=== PATIENT | female | born 1965 | race Caucasian/White ===

== ENCOUNTER 2018-05-26 13:10 | Observation (INO) | payer BC ==
--- NOTE | 2018-05-26 22:00 | CT ---
EXAMINATION TYPE: CT angiography chest, abdomen, and pelvis DATE OF EXAM: 05/26/2018 COMPARISON: None HISTORY: 52-year-old female with left-sided chest pain and severe headache. TECHNIQUE: Contiguous axial scanning of the chest, abdomen, and pelvis before and after the administr ation of 100 mL of Isovue 370. Coronal/sagittal MIP reconstructions performed. 3-D reconstructions g enerated on a dedicated independent workstation. CT DLP: 1872.6mGycm. Automatic exposure control utilized for a dose reduction. FINDINGS: CHEST: Heart upper limits of normal in size without pericardial effusion. No flattening of the interventricu lar septum or reflux of contrast into the hepatic veins. Prominent but not enlarged 7 mm prevascular space lymph node. No thoracic lymphadenopathy by CT size criteria. Evaluation of the lungs shows 4 mm anterior right midlung pulmonary nodule axial image 38. No consoli dation or pleural effusion. VASCULATURE: Initial noncontrast sequence shows no evidence for acute intramural hematoma. Ascending aorta mildly ectatic at 3.7 cm. Proximal arch ectatic at 3.6 cm. Variant direct takeoff of the left vertebral artery directly from the aortic arch. Upper descending thoracic aorta normal caliber at 2.4 cm. No evidence for aortic dissection. Abdominal aorta is normal caliber with patent visceral arteries. 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 ABDOMEN: Liver enlarged at 22 cm with low attenuation. Arterial phase imaging with mixing artifact in the port al venous system limiting its assessment. No biliary ductal dilatation. Gallbladder, adrenal glands, right kidney, spleen, and pancreas appear within normal limits. 2.0 cm p robable cyst exophytic lateral lower pole left kidney. No dilated small bowel, free fluid, or free air. Tiny fatty umbilical hernia. No mesenteric or retrop eritoneal lymphadenopathy. Normal appendix. Scattered mild stool burden without pericolonic inflammatory change. PELVIS: Bladder is urine distended. Uterus surgically absent. Left ovary is visualized. Right ovary not clear ly seen. No abnormal fluid collection in the pelvis or pelvic lymphadenopathy seen. BONES: Degenerative changes of the hips. Facet arthropathy mid to lower lumbar spine. Degenerative disc dise ase mid thoracic spine. No osseous destructive process. IMPRESSION: 1. Ectatic ascending aorta measuring up to 3.7 cm. No evidence for aortic aneurysm, acute intramural hematoma, or aortic dissection. 2. A 4 mm right midlung pulmonary nodule can be reassessed at a one-year follow-up. 3. Hepatomegaly and hepatic steatosis (liver measures 22 cm).
--- NOTE | 2018-05-26 22:00 | XR ---
EXAMINATION TYPE: PA and lateral views of the chest DATE OF EXAM: 05/26/2018 COMPARISON: 10/22/2014 HISTORY: 52-year-old female with chest pain FINDINGS: Heart normal size. Aorta within normal limits. Strandy atelectasis mid and lower lungs. No consolidat ion or pleural effusion. IMPRESSION: No acute cardiopulmonary process.
--- NOTE | 2018-05-26 22:00 | CT ---
EXAMINATION TYPE: CT head without contrast DATE OF EXAM: 05/26/2018 COMPARISON: None HISTORY: 52-year-old female left-sided chest pain, headache and head pressure TECHNIQUE: Examination was done in axial plane without intravenous contrast. Coronal and sagittal r econstructions performed. CT DLP: 1103.4 mGycm Automated exposure control for dose reduction was used. FINDINGS: There is no evidence of acute intracranial hemorrhage, acute ischemic changes, mass, mass-effect, or extra-axial fluid collection. There is no effacement of cerebral sulci or basal subarachnoid cister ns. There is no hydrocephalus. There is no midline shift. Caraballo-white matter distinction is preserv ed. Paranasal sinuses and mastoid air cells are well pneumatized. Orbits and globes are intact. IMPRESSION: No acute intracranial abnormality seen.
[2018-05-26] MEDS ORDERED: ACETAMINOPHEN TAB 325 MG TAB PO PRN (23:14)
[2018-05-26] MEDS ORDERED: IBUPROFEN 400 MG TAB PO PRN (23:15)
[2018-05-26 23:43] VITALS: RESP 18
[2018-05-26 23:55] VITALS: BMI 50.3
[2018-05-27 01:02] LABS: INR 0.9 (<1.2); Partial Thromboplastin Time 24.6 sec (22.0-30.0); Prothrombin Time 9.6 sec (9.0-12.0)
[2018-05-27 02:21] LABS: Creatine Kinase 60 U/L (30-135)
[2018-05-27 02:34] LABS: Creatine Kinase MB 0.5 ng/mL (0.0-2.4); Troponin I <0.012 ng/mL (0.000-0.034)
[2018-05-27 02:40] LABS: ALT 40 U/L (9-52); AST 25 U/L (14-36); Albumin 4.3 g/dL (3.5-5.0); Alkaline Phosphatase 73 U/L (38-126); Anion Gap 11 mmol/L; Blood Urea Nitrogen 12 mg/dL (7-17); Calcium 9.3 mg/dL (8.4-10.2); Carbon Dioxide 26 mmol/L (22-30); Chloride 103 mmol/L (98-107); Glucose 120 mg/dL (74-99); Magnesium 1.7 mg/dL (1.6-2.3); Sodium 140 mmol/L (137-145); Total Bilirubin 0.3 mg/dL (0.2-1.3)
[2018-05-27 02:46] LABS: Creatine Kinase 81 U/L (30-135); Creatine Kinase MB 0.8 ng/mL (0.0-2.4); Troponin I <0.012 ng/mL (0.000-0.034)
[2018-05-27 06:02] LABS: Basophils % (A) 1 %; Eosinophils # (A) 0.2 k/uL (0-0.7); Eosinophils % (A) 3 %; HCT 37.9 % (34.0-46.0); HGB 12.7 gm/dL (11.4-16.0); Lymphocytes # (A) 1.6 k/uL (1.0-4.8); Lymphocytes % (A) 23 %; MCHC 33.4 g/dL (31.0-37.0); MCV 89.9 fL (80.0-100.0); Mean Platelet Volume 7.7; Monocytes # (A) 0.3 k/uL (0-1.0); Monocytes % (A) 5 %; Neutrophils # (A) 4.7 k/uL (1.3-7.7); Neutrophils % (A) 67 %; Platelet Count 291 k/uL (150-450); RBC 4.22 m/uL (3.80-5.40); RDW 13.4 % (11.5-15.5); WBC 7.1 k/uL (3.8-10.6)
[2018-05-27 06:38] LABS: Glucose,Whole Blood 132 mg/dL (75-99)
[2018-05-27 07:43] LABS: Basophils # (A) 0.1 k/uL (0-0.2); Basophils % (A) 1 %; Eosinophils # (A) 0.3 k/uL (0-0.7); Eosinophils % (A) 3 %; HCT 36.6 % (34.0-46.0); HGB 11.8 gm/dL (11.4-16.0); Lymphocytes # (A) 1.8 k/uL (1.0-4.8); Lymphocytes % (A) 22 %; MCH 28.8 pg (25.0-35.0); MCHC 32.3 g/dL (31.0-37.0); MCV 89.1 fL (80.0-100.0); Mean Platelet Volume 6.6; Monocytes # (A) 0.4 k/uL (0-1.0); Monocytes % (A) 5 %; Neutrophils # (A) 5.4 k/uL (1.3-7.7); Neutrophils % (A) 66 %; Platelet Count 275 k/uL (150-450); RBC 4.11 m/uL (3.80-5.40); RDW 13.3 % (11.5-15.5); WBC 8.1 k/uL (3.8-10.6)
[2018-05-27 08:20] LABS: Creatine Kinase 54 U/L (30-135)
[2018-05-27 08:32] LABS: Creatine Kinase MB 0.4 ng/mL (0.0-2.4); Troponin I <0.012 ng/mL (0.000-0.034)
[2018-05-27 08:35] LABS: Anion Gap 7 mmol/L; Blood Urea Nitrogen 16 mg/dL (7-17); Calcium 9.3 mg/dL (8.4-10.2); Carbon Dioxide 29 mmol/L (22-30); Chloride 103 mmol/L (98-107); Glucose 141 mg/dL (74-99); Potassium 4.3 mmol/L (3.5-5.1); Sodium 139 mmol/L (137-145)
--- NOTE | 2018-05-27 08:55 | P.CRDCN ---
History of Present Illness Consult date: 05/27/18 Chief complaint: Chest pain History of present illness: This is a pleasant 52-year-old female patient with a past medical history significant for diabetes, hypertension, and dyslipidemia, who presented to the hospital complaining of chest discomfort. The patient was in her usual state of health and she was sitting in the car with her when she started experiencing discomfort in the chest, as a sharp kind of discomfort, located over the left side of the chest. She felt weak for a few minutes. Also she felt nauseated but she did not vomit. Overall she did not feel well and because of that she decided to come to the emergency room. The patient underwent a computed tomography scan of the head which did not show any acute abnormalities. The computed tomography scan of the chest also did not show any acute abnormalities. The EKG showed sinus rhythm with a Q wave in the inferior leads indicating possible old inferior [place]. The EKG itself did not show any acute or ischemic changes. The cardiac enzymes were checked and came in to be unremarkable. On follow-up with her today, she has been chest pain-free since she was admitted to the hospital. The past medical history is as described above. The patient does not smoke or drink alcohol. She does have a significant family history of coronary artery disease with her father. Past Medical History Past Medical History: Diabetes Mellitus, GERD/Reflux, Hyperlipidemia, Hypertension, Pulmonary Embolus (PE), Thyroid Disorder Additional Past Medical History / Comment(s): depression, right hamstring tear History of Any Multi-Drug Resistant Organisms: MRSA Date of last positivie culture/infection: 2010 MDRO Source:: lower extremities Past Surgical History: Hysterectomy, Orthopedic Surgery Additional Past Surgical History / Comment(s): right ankle Past Anesthesia/Blood Transfusion Reactions: No Reported Reaction Past Psychological History: Depression Smoking Status: Former smoker Past Alcohol Use History: None Reported Past Drug Use History: None Reported - Past Family History Father Family Medical History: Coronary Artery Disease (CAD), Diabetes Mellitus Mother Family Medical History: Diabetes Mellitus Medications and Allergies Home Medications Medication Instructions Recorded Confirmed Type Atorvastatin [Lipitor] 20 mg PO HS 10/22/14 05/27/18 History Hydrochlorothiazide 25 mg PO DAILY 10/22/14 05/27/18 History Metoprolol Succinate [Toprol XL] 100 mg PO DAILY 10/22/14 05/27/18 History Omeprazole [PriLOSEC] 20 mg PO AC-BRKFST 10/22/14 05/27/18 History Lisinopril 30 mg PO DAILY 05/27/18 05/27/18 History Meloxicam [Mobic] 15 mg PO DAILY 05/27/18 05/27/18 History Methimazole [Tapazole] 5 mg PO DAILY 05/27/18 05/27/18 History Venlafaxine HCl [Effexor] 75 mg PO BID 05/27/18 05/27/18 History metFORMIN HCL [Glucophage] 2 tab PO BID 05/27/18 05/27/18 History Allergies Allergy/AdvReac Type Severity Reaction Status Date / Time shellfish derived [Shellfish] AdvReac ITCHY Verified 10/22/14 09:24 MOUTH & VOMITING Physical Exam Vitals: Vital Signs Temp Pulse Resp BP Pulse Ox 05/27/18 07:10 97.6 F 88 18 143/70 98 05/27/18 04:26 98.1 F 91 18 112/74 99 05/27/18 03:31 18 05/27/18 00:00 18 05/26/18 23:42 97.8 F 69 18 169/89 97 Intake and Output 05/26/18 05/27/18 05/27/18 22:59 06:59 14:59 Other: Voiding Method Toilet # Voids 2 Weight 124.738 kg - Constitutional General appearance: no acute distress - Respiratory Respiratory: bilateral: CTA - Cardiovascular Rhythm: regular Heart sounds: normal: S1, S2 Results 05/27/18 07:12 05/27/18 07:12 Cardiac Enzymes 05/26/18 05/26/18 05/27/18 Range/Units 13:20 13:20 01:26 AST 25 (14-36) U/L CK-MB (CK-2) 0.8 0.5 (0.0-2.4) ng/mL Troponin I <0.012 <0.012 (0.000-0.034) ng/mL 05/27/18 Range/Units 07:12 AST (14-36) U/L CK-MB (CK-2) 0.4 (0.0-2.4) ng/mL Troponin I <0.012 (0.000-0.034) ng/mL Coagulation 05/26/18 Range/Units 13:20 PT 9.6 (9.0-12.0) sec APTT 24.6 (22.0-30.0) sec CBC 05/26/18 05/27/18 Range/Units 13:20 07:12 WBC 7.1 8.1 (3.8-10.6) k/uL RBC 4.22 4.11 (3.80-5.40) m/uL Hgb 12.7 11.8 (11.4-16.0) gm/dL Hct 37.9 36.6 (34.0-46.0) % Plt Count 291 275 (150-450) k/uL Comprehensive Metabolic Panel 05/26/18 05/27/18 Range/Units 13:20 07:12 Sodium 140 139 (137-145) mmol/L Potassium 4.0 4.3 (3.5-5.1) mmol/L Chloride 103 103 (98-107) mmol/L Carbon Dioxide 26 29 (22-30) mmol/L BUN 12 16 (7-17) mg/dL Creatinine 0.66 0.79 (0.52-1.04) mg/dL Glucose 120 H 141 H (74-99) mg/dL Calcium 9.3 9.3 (8.4-10.2) mg/dL AST 25 (14-36) U/L ALT 40 (9-52) U/L Alkaline Phosphatase 73 (38-126) U/L Total Protein 7.0 (6.3-8.2) g/dL Albumin 4.3 (3.5-5.0) g/dL Current Medications Generic Name Dose Route Start Last Admin Trade Name Freq PRN Reason Stop Dose Admin Acetaminophen 650 mg 05/26/18 23:14 Tylenol Tab PO Q6HR PRN Fever and/ or Pain Ibuprofen 400 mg 05/26/18 23:15 Motrin PO Q6HR PRN Pain Intake and Output 05/26/18 05/27/18 05/27/18 22:59 06:59 14:59 Other: Voiding Method Toilet # Voids 2 Weight 124.738 kg 05/27/18 07:12 05/27/18 07:12 Assessment and Plan Assessment: Assessment #1 atypical chest discomfort. The patient has been chest pain-free #2 multiple risk factors for CAD including diabetes, hypertension, and dyslipidemia #3 significant family history of coronary artery disease Plan #1 the patient was ruled out for acute coronary event #2 severe coronary artery disease to be ruled out. I did recommend proceeding with a stress test. The patient would like to have the stress test done as an outpatient #3 I am going to get the patient up and around and if she is chest pain-free she possibly can be discharged home. Thank you for allowing us participate in her care.
[2018-05-27 11:57] LABS: Glucose,Whole Blood 126 mg/dL (75-99)
[2018-05-27 12:06] VITALS: BP 153/86; PULSE 72; TEMP 98.6
[2018-05-27] MEDS ORDERED: PANTOPRAZOLE 40 MG TABLET PO SCH (14:45)
[2018-05-27] MEDS ORDERED: LISINOPRIL 10 MG TAB PO SCH (14:45)
[2018-05-27] MEDS ORDERED: METHIMAZOLE 5 MG TAB PO SCH (14:45)
[2018-05-27] MEDS ORDERED: HYDROCHLOROTHIAZIDE 25 MG TAB PO SCH (14:45)
--- NOTE | 2018-05-27 15:02 | P.HPIM ---
History of Present Illness H&P Date: 05/27/18 Chief Complaint: Chest pain Patient is a 52-year-old female with a past medical history of hypertension, hyperlipidemia and diabetes type 2 [id number] and as well as osteoarthritis came to ER with complaints of chest pain. Patient was traveling with her in the car, she suddenly developed chest pain with headache and tingling and numbness over the head. After sometime patient did have chest pain again with the dizziness and nausea and metallic taste in the mouth. Patient was having sweating and felt some tingling sensation in the left shoulder. Denied any recent illnesses. No fever no chills. No vomiting. No abdominal pain no diarrhea. Denied any unusual food intake. Patient had breakfast 2 hours prior to that episode. Patient does take Mobic for arthritic pain on daily basis. Patient quit smoking 4 years ago EKG showed no ST-T wave changes. Normal sinus rhythm Chest x-ray showed no acute cardio pulmonary process CT head showed no acute intracranial process CT chest showed ectatic ascending aorta measuring up to 3.7 cm. No evidence of aortic aneurysm. no acute intra-mural hematoma or aortic dissection 4mm right mid lung pulmonary nodule can be reassessed at her one-year follow-up Hepatomegaly and hepatic steatosis Troponin 2 negative Review of Systems Constitutional: Patient denies any fever or chills . No generalized weakness or weight loss. Abdomen: Patient denied nausea vomiting and diarrhea and abdominal pain. Cardiovascular: Chest pain with nausea and left hand tingling. No diarrhea. No leg swelling Respiratory: patient denied any cough is from production. No shortness of breath Neurologic: Patient denied any numbness or tingling headache. Musculoskeletal: Patient denies any complaints of joint swelling or deformity. Skin: Negative Psychiatric: Negative Endocrine: No heat or cold intolerance. No recent weight gain. Genitourinary: No dysuria or hematuria. All other 14 point ROS negative except the above Past Medical History Past Medical History: Diabetes Mellitus, GERD/Reflux, Hyperlipidemia, Hypertension, Pulmonary Embolus (PE), Thyroid Disorder Additional Past Medical History / Comment(s): depression, right hamstring tear History of Any Multi-Drug Resistant Organisms: MRSA Date of last positivie culture/infection: 2010 MDRO Source:: lower extremities Past Surgical History: Hysterectomy, Orthopedic Surgery Additional Past Surgical History / Comment(s): right ankle Past Anesthesia/Blood Transfusion Reactions: No Reported Reaction Past Psychological History: Depression Smoking Status: Former smoker Past Alcohol Use History: None Reported Past Drug Use History: None Reported - Past Family History Father Family Medical History: Coronary Artery Disease (CAD), Diabetes Mellitus Mother Family Medical History: Diabetes Mellitus Medications and Allergies Home Medications Medication Instructions Recorded Confirmed Type Atorvastatin [Lipitor] 20 mg PO HS 10/22/14 05/27/18 History Hydrochlorothiazide 25 mg PO DAILY 10/22/14 05/27/18 History Metoprolol Succinate [Toprol XL] 100 mg PO DAILY 10/22/14 05/27/18 History Omeprazole [PriLOSEC] 20 mg PO AC-BRKFST 10/22/14 05/27/18 History Lisinopril 30 mg PO DAILY 05/27/18 05/27/18 History Meloxicam [Mobic] 15 mg PO DAILY 05/27/18 05/27/18 History Methimazole [Tapazole] 5 mg PO DAILY 05/27/18 05/27/18 History Venlafaxine HCl [Effexor XR] 150 mg PO BID 05/27/18 05/27/18 History metFORMIN HCL [Glucophage] 1,000 mg PO BID 05/27/18 05/27/18 History Allergies Allergy/AdvReac Type Severity Reaction Status Date / Time shellfish derived [Shellfish] AdvReac ITCHY Verified 05/27/18 09:34 MOUTH & VOMITING Physical Exam Vitals: Vital Signs Temp Pulse Resp BP Pulse Ox 05/27/18 12:00 72 18 05/27/18 11:40 98.6 F 72 18 153/86 96 05/27/18 08:00 88 18 05/27/18 07:10 97.6 F 88 18 143/70 98 05/27/18 04:26 98.1 F 91 18 112/74 99 05/27/18 03:31 18 05/27/18 00:00 18 05/26/18 23:42 97.8 F 69 18 169/89 97 Intake and Output 05/26/18 05/27/18 05/27/18 22:59 06:59 14:59 Other: Voiding Method Toilet Toilet # Voids 2 Weight 124.738 kg PHYSICAL EXAMINATION: Patient is lying in the bed comfortably, no acute distress, awake alert and oriented.. HEENT: Normocephalic. Neck is supple. Pupils reactive. Nostrils clear. Oral cavity is moist. Ears reveal no drainage. Neck reveals no JVD, carotid bruits, or thyromegaly. CHEST EXAMINATION: Trachea is central. Symmetrical expansion. Lung fountain clear to auscultation and percussion. CARDIAC: Normal S1, S2 with no gallops. No murmurs ABDOMEN: Soft. Bowel sounds normal. No organomegaly. No abdominal bruits. Extremities: reveal no edema. No clubbing or cyanosis Neurologically awake, alert, oriented x3 with well-coordinated movements. No focal deficits noted Skin: No rash or skin lesions. Psychiatric: Coperative. Nonsuicidal Musculoskeletal: No joint swelling or deformity. Normal range of motion. Results CBC & Chem 7: 05/27/18 07:12 05/27/18 07:12 Labs: Abnormal Lab Results - Last 24 Hours (Table) 05/26/18 05/27/18 05/27/18 Range/Units 13:20 06:36 07:12 Glucose 120 H 141 H (74-99) mg/dL POC Glucose (mg/dL) 132 H (75-99) mg/dL 05/27/18 Range/Units 11:55 Glucose (74-99) mg/dL POC Glucose (mg/dL) 126 H (75-99) mg/dL Thrombosis Risk Factor Assmnt - DVT/VTE Prophylaxis DVT/VTE Prophylaxis: Pharmacologic Prophylaxis ordered - Choose All That Apply Each Factor Represents 1 point: Age 41-60 years, Obesity (BMI >25) Thrombosis Risk Factor Assessment Total Risk Factor Score: 2 Thrombosis Risk Factor Assessment Level: Low Risk Assessment and Plan Assessment: Atypical chest pain. Rule out ACS Possible gastritis. Sam has been held Hypertension uncontrolled Diabetes type 2 [id number] Morbid obesity BMI 50.3 Hyperlipidemia Family history of coronary disease Depression History of smoking quit 4 years ago 4MM right midlung pulmonary nodule. Outpatient follow-up with repeat scan in one year GERD DVT prophylaxis Plan: Patient be continued on telemetry monitoring. Serial EKGs and troponins. Continue the home medications and blood pressure medications and insulin sliding scale. Continue with Prilosec. Further admissions based on the critical course. Time with Patient: Greater than 30
[2018-05-27] MEDS ORDERED: metFORMIN 500 MG TAB PO SCH (21:00)
[2018-05-27] MEDS ORDERED: VENLAFAXINE HCL ER 150 MG CAP PO SCH (21:00)
[2018-05-27] MEDS ORDERED: ATORVASTATIN 20 MG TAB PO SCH (21:00)
[2018-05-28 08:58] LABS: Hemoglobin A1C 7.1 % (4.0-6.0)
[2018-05-28] MEDS ORDERED: METOPROLOL SUCCINATE (ER) 100 MG TAB.ER.24H PO SCH (09:00)
== END 2018-05-27 15:28 | disposition home or self-care (01) ==
LOC: EC 13:10 → 1SOBS 22:41
PROVIDERS: ADMIT Internal Medicine; ATTEND Internal Medicine
DX: R07.89 Other chest pain (principal); E11.65 Type 2 diabetes mellitus with hyperglycemia; I10 Essential (primary) hypertension; E78.5 Hyperlipidemia, unspecified; R11.0 Nausea; R61 Generalized hyperhidrosis; R06.02 Shortness of breath; R43.9 Unspecified disturbances of smell and taste; R51 Headache; R20.0 Anesthesia of skin; R20.2 Paresthesia of skin; R53.1 Weakness; R42 Dizziness and giddiness; K21.9 Gastro-esophageal reflux disease without esophagitis; E07.9 Disorder of thyroid, unspecified; F32.9 Major depressive disorder, single episode, unspecified; M19.90 Unspecified osteoarthritis, unspecified site; R91.1 Solitary pulmonary nodule; K76.0 Fatty (change of) liver, not elsewhere classified; E66.01 Morbid (severe) obesity due to excess calories; Z68.43 Body mass index [BMI] 50.0-59.9, adult; Z79.1 Long term (current) use of non-steroidal anti-inflammatories (NSAID); Z79.84 Long term (current) use of oral hypoglycemic drugs; Z79.899 Other long term (current) drug therapy; Z91.013 Allergy to seafood; Z86.711 Personal history of pulmonary embolism; Z86.14 Personal history of Methicillin resistant Staphylococcus aureus infection; Z90.710 Acquired absence of both cervix and uterus; Z87.891 Personal history of nicotine dependence; Z82.49 Family history of ischemic heart disease and other diseases of the circulatory system; Z83.3 Family history of diabetes mellitus
CPT/HCPCS: 99285; 86900; 86901; 83880; 80053; 80048; 82550 ×2; 82553 ×2; 83735; 84443; 84484 ×2; 85025 ×2; 85610; 85730; 86850; 83036; 71046; 70450; 71275; 74174; G0378 ×2; Q9967

== ENCOUNTER 2020-05-19 06:28 | Day surgery (SDC) | payer BC ==
[2020-05-14 15:46] VITALS: BMI 47.7
[2020-05-19 06:46] VITALS: RESP 16; TEMP 97
[2020-05-19 06:58] LABS: Glucose,Whole Blood 124 mg/dL (75-99)
[2020-05-19] MEDS ORDERED: IOPAMIDOL M200 10 ML VIAL ONE (07:20)
[2020-05-19] MEDS ORDERED: DEXAMETHASONE SOD PHOSPHATE 10 MG/ML 1 ML VIAL ONE (07:20)
--- NOTE | 2020-05-19 07:41 | P.PCN ---
Date of Procedure: 05/19/20 Description of Procedure: PREOPERATIVE DIAGNOSIS: Lumbar radiculopathy POSTOPERATIVE DIAGNOSIS: Lumbar radiculopathy Attending physician: Robert Leyva M.D. PROCEDURE 1. Transforaminal epidural steroid injection under fluoroscopic guidance L4- [id number], Right side 2. Lumbar epidurogram ANESTHESIA: Local with 1% lidocaine 3 ml ; PROCEDURE INDICATION: The patient with low back pain and radiculopathy symptoms unresponsive to conservative treatment. Fluoroscopy was used for the procedure and fluoroscopic images were saved to the radiology portion of patient's chart. PROCEDURE DESCRIPTION / TECHNIQUE: The patient was seen and identified in the preoperative area. Risks, benefits, complications, and alternatives were discussed with the patient. The patient agreed to proceed with the procedure and signed the consent. IV was started, and vital signs were stable. Patient was taken to the OR and time out was completed. The patient was placed in the prone position on procedure table and a pillow was placed under the abdomen to reduce lumbar lordosis. The lumbosacral area was prepped and draped in the usual sterile fashion. Vital signs were closely monitored during the procedure. Conscious sedation was used. Using oblique fluoroscopy, the chin of the ``José Antonio dog and the skin and deeper tissues just below was localized with 1% lidocaine. Subsequently, a 22- gauge 5-inch spinal needle was advanced under a tunneled view fluoroscopic guidance just underneath the chin of the ``José Antonio dog . Under lateral fluoroscopy, the needle was then advanced to the posterior border of the foramen. After negative aspiration of CSF and blood and with no paresthesias, 1 mL of Isovue-200 contrast dye was injected under live fluoroscopy and there was no evidence of intravascular injection. The injectate solution consisting of 10 mg of dexamethasone with 1 mL of 1% lidocaine was then delivered. The needle was withdrawn intact. At the end of the procedure, skin was cleansed, and bandages were applied. COMPLICATIONS: None COMMENTS: DISPOSITION / PLANS: The patient was placed in a supine position and transferred to the recovery area in a stable condition for observation. There was no evidence of lower extremity motor or sensory deficit after the procedure. Patient was discharged from the recovery room after meeting discharge criteria. Home discharge instructions were given to the patient by the staff. The patient will follow up for repeat procedure 2-4 weeks.
[2020-05-19 08:01] VITALS: BP 135/87; PULSE 81
--- NOTE | 2020-05-19 12:18 | FL ---
Fluoroscopy HISTORY: Pain 10 seconds fluoroscopy time supplied to the referring clinician. 1 intraoperative C-arm images docum ent the procedure. See dictated report from anesthesia.
== END 2020-05-19 08:08 | disposition home or self-care (01) ==
LOC: ORPAIN 06:28
PROVIDERS: ATTEND Anesthesiology
DX: M54.16 Radiculopathy, lumbar region (principal); E11.9 Type 2 diabetes mellitus without complications; Z91.013 Allergy to seafood; Z90.710 Acquired absence of both cervix and uterus
CPT/HCPCS: 64483; J1100; Q9966

== ENCOUNTER 2020-06-09 06:45 | Day surgery (SDC) | payer BC ==
[2020-06-09] MEDS ORDERED: LACTATED RINGERS 1,000 ML IV SCH (07:45)
[2020-06-09 07:55] VITALS: RESP 16; TEMP 98.9
[2020-06-09] MEDS ORDERED: methylPREDNISolone ACETATE 40 MG/ML 1 ML VIAL ONE (07:56)
[2020-06-09] MEDS ORDERED: IOPAMIDOL M200 10 ML VIAL ONE (07:56)
[2020-06-09 08:01] LABS: Glucose,Whole Blood 127 mg/dL (75-99)
--- NOTE | 2020-06-09 08:11 | P.PCN ---
Date of Procedure: 06/09/20 Procedure(s) Performed: PROCEDURE 1. Transforaminal epidural steroid injection under fluoroscopic guidance L4- [id number], Right side 2. Lumbar epidurogram ANESTHESIA: Local with 1% lidocaine 3 ml only ( NO IV SEDATIONS ) PROCEDURE INDICATION: The patient with low back pain and radiculopathy symptoms unresponsive to conservative treatment. Fluoroscopy was used for the procedure and fluoroscopic images were saved to the radiology portion of patient's chart. PROCEDURE DESCRIPTION / TECHNIQUE: The patient was seen and identified in the preoperative area. Risks, benefits, complications, and alternatives were discussed with the patient. The patient agreed to proceed with the procedure and signed the consent. IV was started, and vital signs were stable. Patient was taken to the OR and time out was completed. The patient was placed in the prone position on procedure table and a pillow was placed under the abdomen to reduce lumbar lordosis. The lumbosacral area was prepped and draped in the usual sterile fashion. Vital signs were closely monitored during the procedure. Conscious sedation was used. Using oblique fluoroscopy, the chin of the ``José Antonio dog and the skin and deeper tissues just below was localized with 1% lidocaine. Subsequently, a 22- gauge 5-inch spinal needle was advanced under a tunneled view fluoroscopic guidance just underneath the chin of the ``José Antonio dog . Under lateral fluoroscopy, the needle was then advanced to the posterior border of the foramen. After negative aspiration of CSF and blood and with no paresthesias, 1 mL of Isovue-200 contrast dye was injected under live fluoroscopy and there was no evidence of intravascular injection. The injectate solution consisting of 40 mg of depo-Medrol with 1 mL of 1% lidocaine was then delivered. The needle was withdrawn intact. At the end of the procedure, skin was cleansed, and bandages were applied. COMPLICATIONS: None DISPOSITION / PLANS: The patient was placed in a supine position and transferred to the recovery area in a stable condition for observation. There was no evidence of lower extremity motor or sensory deficit after the procedure. Patient was discharged from the recovery room after meeting discharge criteria. Home discharge instructions were given to the patient by the staff.
[2020-06-09 08:14] VITALS: BP 138/73; PULSE 73
--- NOTE | 2020-06-09 08:23 | FL ---
EXAMINATION TYPE: FL guided pain mgmt statistic DATE OF EXAM: 06/09/2020 CLINICAL HISTORY: Low back pain. TECHNIQUE: Fluoroscopy. COMPARISON: None. FINDINGS: Fluoroscopic guidance was provided during pain relief procedure performed by Dr. Bernard . A total of 5 seconds of fluoroscopic time was utilized during the procedure and single spot intrao perative image is acquired. Single image acquired shows needle localization at mid lumbar spine leve l off the midline. IMPRESSION: As Above.
== END 2020-06-09 08:37 | disposition home or self-care (01) ==
LOC: ORPAIN 06:45
PROVIDERS: ATTEND Specialist
DX: M54.16 Radiculopathy, lumbar region (principal); E11.9 Type 2 diabetes mellitus without complications; Z91.013 Allergy to seafood; Z90.710 Acquired absence of both cervix and uterus
CPT/HCPCS: 64483; J1030; Q9966

== ENCOUNTER → 2020-07-30 | Outpatient (CLI) | payer BC ==
--- NOTE | 2020-07-30 21:26 | MR ---
EXAMINATION TYPE: MR lumbar spine wo con DATE OF EXAM: 07/30/2020 COMPARISON: None HISTORY: Low back pain that goes down both legs for 1 year. TECHNIQUE: Multiplanar, multisequence images of the lumbar spine were acquired. Findings: The lumbar vertebral segments are normal in both height and alignment and there is no fracture or sub luxation. There is mild degenerative disc disease with mild loss of signal intensity in disc bulge at the L3-4 and L4-5 levels. There is mild facet degeneration at the L3-4 and L5-S1 levels and marked facet degeneration at the L4 -5 level. There is a mild left lateral focal disc protrusion at the L3-4 level. Secondary to disc bulge, thickening ligamentum flavum facet hypertrophy, there is a mild spinal steno sis at the L4-5 level. The neuroforamina are patent bilaterally. The conus medullaris and cauda equina appear normal. The paraspinal soft tissues are unremarkable. IMPRESSION: 1. Mild degenerative disc disease at the L3-4 and L4-5 level. 2. Mild focal disc protrusion the L3-4 disc on the left. 3. Mild spinal stenosis at L4-5 level. 4. Osteoarthritic changes in the lower lumbar spine severe at the L4-5 level.
== END | disposition home or self-care (01) ==
LOC: RADMRIMAIN 15:23
PROVIDERS: ATTEND Orthopaedic Surgery
DX: M51.36 Other intervertebral disc degeneration, lumbar region (principal); M51.26 Other intervertebral disc displacement, lumbar region; M48.061 Spinal stenosis, lumbar region without neurogenic claudication
CPT/HCPCS: 72148

== ENCOUNTER → 2020-08-03 | Outpatient (CLI) | payer BC ==
--- NOTE | 2020-08-04 07:16 | CT ---
EXAMINATION TYPE: CT lumbar spine wo con DATE OF EXAM: 08/03/2020 6:03 PM COMPARISON: None HISTORY: Chronic low back pain, numbness radiating down bilateral legs. CT DLP: 2213 mGycm Automated exposure control for dose reduction was used. Unenhanced CT of the lumbar spine was performed. Bone and soft tissue window settings are submitted as well as coronal and sagittal reconstructions. L1-L2: Normal disc space height. No disc herniation protrusion or central stenosis. No facet joint arthropathy. No evidence for foraminal encroachment. L2-L3: Normal disc space height. No disc herniation protrusion or central stenosis. No facet joint arthropathy. No evidence for foraminal encroachment. L3-L4: Left paracentral disc bulge noted with left foraminal encroachment. Mild degenerative disc spa ce narrowing. No central stenosis appreciated. L4-L5: Mild to moderate degenerative disc space narrowing. Posterior disc bulge with effacement of th e ventral thecal sac. Mild central stenosis with bilateral lateral recess stenosis. Bilateral foramin al encroachment noted mild in degree. L5-S1: Normal disc space height. No disc herniation protrusion or central stenosis. No facet joint arthropathy. No evidence for foraminal encroachment. IMPRESSION: 1. Degenerative disc disease at L3-4 and L4-5. Bilateral lateral recess stenosis and central stenosis L4-5 as discussed.
== END | disposition home or self-care (01) ==
LOC: RADCTMAIN 17:49
PROVIDERS: ATTEND Orthopaedic Surgery
DX: M51.36 Other intervertebral disc degeneration, lumbar region (principal); M48.061 Spinal stenosis, lumbar region without neurogenic claudication
CPT/HCPCS: 72131

== ENCOUNTER → 2020-08-07 | Outpatient (CLI) | payer BC ==
--- NOTE | 2020-08-07 19:45 | MR ---
EXAMINATION TYPE: MR cervical spine wo con DATE OF EXAM: 08/07/2020 COMPARISON: None HISTORY: Cervical pain and bilateral arm pain CONTRAST: None TECHNIQUE: Multiplanar multiecho imaging on a 3.0 Paige magnet is performed through the cervical spin e. FINDINGS: The craniovertebral junction is normal. Vertebral body alignment is normal. Mild disc de siccation is present C7-T1: No focal disc herniation or significant disc bulge is evident. No spinal canal stenosis or n eural foraminal stenosis is present. C6-7: There is mild central focal bulging with mild anterior thecal sac compression. No cord contact is evident. No spinal canal stenosis or neural foraminal stenosis.. C5-6: Broad-based disc bulge is moderate anterior thecal sac compression. This comes in close approxi mation of the spinal cord. No spinal canal stenosis is present. Uncovertebral joint hypertrophy is co ntributing to severe bilateral foraminal narrowing.. C4-5: Broad-based disc bulge is mild anterior thecal sac flattening. No cord contact is evident. No s merlyn canal stenosis is present. Uncovertebral joint hypertrophy is severe bilateral foraminal stenos is. C3-4: Mild disc bulges interthecal sac contact. No spinal canal stenosis present. Uncovertebral joint hypertrophy is moderate bilateral foraminal narrowing. C2-3: No focal disc herniation or significant disc bulge is evident. No spinal canal stenosis or radha ral foraminal stenosis is present. IMPRESSIONS: 1. Uncovertebral joint hypertrophy present C3-4 through C5-6 contributing to moderate to severe quinn inal stenosis discussed above. 2. Disc bulging C5-6 without cord contact or stenosis. Milder disc bulging is present at C6-7 and C4- 5.
== END | disposition home or self-care (01) ==
LOC: RADMRIMAIN 06:59
PROVIDERS: ATTEND Orthopaedic Surgery
DX: M50.222 Other cervical disc displacement at C5-C6 level (principal); M50.221 Other cervical disc displacement at C4-C5 level
CPT/HCPCS: 72141

== ENCOUNTER 2020-08-18 11:07 | Day surgery (SDC) | payer BC ==
[2020-08-14 16:05] VITALS: BMI 47.5
[~2020-08-18 11:07] MED LIST: LACTATED RINGERS 1,000 ML IV SCH
[2020-08-18 11:41] VITALS: RESP 16; TEMP 98.5
[2020-08-18] MEDS ORDERED: LIDOCAINE 1% (10MG/ML) FOR IV START INTRADERMA ONE (11:47)
[2020-08-18 11:50] LABS: Glucose,Whole Blood 152 mg/dL (75-99)
[2020-08-18] MEDS ORDERED: MIDAZOLAM 2 MG/2 ML VIAL ONE (12:11)
[2020-08-18] MEDS ORDERED: fentaNYL (PF) 50 MCG/ML 2 ML AMP ONE (12:11)
[2020-08-18] MEDS ORDERED: IOPAMIDOL M200 10 ML VIAL ONE (12:11)
[2020-08-18] MEDS ORDERED: DEXAMETHASONE SOD PHOSPHATE 10 MG/ML 1 ML VIAL ONE (12:11)
[2020-08-18] MEDS ORDERED: IV FLUID CONTINUATION 1,000 ML IV ONE (12:38)
[2020-08-18 12:56] VITALS: BP 117/81; PULSE 75
--- NOTE | 2020-08-18 13:14 | FL ---
EXAMINATION TYPE: FL guided pain mgmt statistic DATE OF EXAM: 08/18/2020 FLUOROSCOPY Fluoroscopy time of 13 seconds was used during transforaminal epidural steroid injection of the cervi rené spine. 2 image/s document/s the procedure.
--- NOTE | 2020-08-18 14:11 | P.PCN ---
Date of Procedure: 08/18/20 Procedure(s) Performed: PREOPERATIVE DIAGNOSIS:1- Cervical radiculopathy . 2-cervical degenerative disc disease POSTOPERATIVE DIAGNOSIS: Same as preoperative diagnoses. PROCEDURE 1. Transforaminal epidural steroid injection under fluoroscopic guidance at left C5-6 level. (Fluoroscopy images stored on file in the radiology Department ) 2. Cervical epidurogram . ANESTHESIA: moderate sedation with intravenous Versed 2 mg and fentanyle 50 micrograms. EBL: Minimal PROCEDURE INDICATION: The patient with neck pain and radiculopathy symptoms unresponsive to conservative treatment. PROCEDURE DESCRIPTION / TECHNIQUE: The patient was seen and identified in the preoperative area. Risks, benefits, complications, and alternatives were discussed with the patient. The patient agreed to proceed with the procedure and signed the consent. IV was started, and vital signs were stable. Patient was taken to the OR and time out was completed. The patient was placed in the supine position on procedure table. The cervical area was prepped and draped in the usual sterile fashion. Critical pause was taken. Vital signs were closely monitored during the procedure. Conscious sedation was used during the procedure to decrease patient s anxiety. Using oblique fluoroscopy, the cervical foramina at C5-6 level was identified, and the skin and deeper tissues just below was localized with 1% lidocaine. Subsequently, a 22-gauge 3.5-inch spinal needle was advanced under a tunneled view fluoroscopic guidance and advanced towards the left inferior articular process of C5 and advanced towards the posterior inferior portion of the left C5 6 foramina ,,and placed immediately under the left C5 pedicle ,the After negative aspiration of CSF and blood and with no paresthesias, 1 mL Isovue 200 contrast dye was injected excellent epidurogram and outlining of the nerve root Subsequently, 2 mL of block solution containing 10 mg of Dexamethason and 1 ml of PF 0.9 % NS injected after negative aspiration. Needle was removed . At the end of the procedure, skin was cleansed, and bandages were applied. COMPLICATIONS:none DISPOSITION / PLANS: The patient was placed in a supine position and transferred to the recovery area in a stable condition for observation. There was no evidence of lower extremity motor or sensory deficit after the procedure. Patient was discharged from the recovery room after meeting discharge criteria. Home discharge instructions were given to the patient by the staff. The patient was reexamined prior to discharge.
== END 2020-08-18 13:13 | disposition home or self-care (01) ==
LOC: ORPAIN 11:07
PROVIDERS: ATTEND Specialist
DX: M50.10 Cervical disc disorder with radiculopathy, unspecified cervical region (principal); Z91.013 Allergy to seafood
CPT/HCPCS: 64479; J2250; J1100; J3010; Q9966; 64483; 99152

== ENCOUNTER 2020-09-08 08:02 | Day surgery (SDC) | payer BC ==
[2020-09-07 09:23] VITALS: BMI 48.8
[2020-09-08 08:36] VITALS: RESP 16; TEMP 97.4
[2020-09-08 08:37] LABS: Glucose,Whole Blood 150 mg/dL (75-99)
[2020-09-08] MEDS ORDERED: LACTATED RINGERS 1,000 ML IV ONE (08:37)
[2020-09-08] MEDS ORDERED: LIDOCAINE 1% (10MG/ML) FOR IV START INTRADERMA ONE (08:37)
[2020-09-08] MEDS ORDERED: DEXAMETHASONE SOD PHOSPHATE 10 MG/ML 1 ML VIAL ONE (09:03)
[2020-09-08] MEDS ORDERED: IOPAMIDOL M200 10 ML VIAL ONE (09:03)
[2020-09-08] MEDS ORDERED: fentaNYL (PF) 50 MCG/ML 2 ML AMP ONE (09:03)
[2020-09-08] MEDS ORDERED: MIDAZOLAM 2 MG/2 ML VIAL ONE (09:03)
--- NOTE | 2020-09-08 09:23 | P.PCN ---
Date of Procedure: 09/15/20 Description of Procedure: Pre- and Post-operative Diagnosis: Cervical radiculopathy Procedure: C6-C7 Inter-Laminar Cervical Epidural Steroid Injection under biplanar fluoroscopy Surgeon: Cathy Vale Anesthesia: Local: 1% Lidocaine, IV sedation : Versed and fentanyl. Complications: None. Estimated blood loss: None Specimens removed: None Fluoroscopic image: saved to electronic medical records. Indications for Procedure: The patient has been suffering from neck pain and pain radiating to the upper extremity . Inadequate pain control with pharmacologic regimen. An inter-laminar approach cervical epidural steroid injection was scheduled for the patient. The patient scheduled for left C5-C6 transforaminal epidural block, but her pain is radiating to bilateral upper extremity causing numbness and tingling sensation. Patient has positive bilateral Spurling test positive. MRI findings also conformed. So discussed with the patient regarding C6-C7 midline epidural. Procedure and Findings: The patient was seen and examined in the holding area. The written informed consent was obtained after explaining the risks, benefits, alternatives of the procedure to the patient. The patient was brought to the procedure room and was placed in the prone position on the operating table. A pillow was placed under the upper chest. Standard anesthesia monitoring was done through out the procedure. Timeout was completed. The skin preparation was done with ChloraPrep 1 and draping was done in usual sterile fashion. Sterile technique was observed throughout the procedure. Under fluoroscopic guidance, the C6-C7 inter-laminar space was identified. 3 ml of 1% Lidocaine was injected with a 25 gauge needle to achieve adequate local anesthesia of the skin and subcutaneous tissue. A 20 gauge, 3.5 inch Tuohy type epidural needle was placed and gradually advanced up to the epidural space using loss of resistance technique and fluoroscopic guidance. Lateral, oblique fluoroscopic views confirm the needle position. No paresthesia was noted. A negative aspiration was confirmed and then 1 ml of Isovue-200 was injected. A good dye spread was seen in the epidural space and it was negative for any intrathecal, intraneural or intravascular spread. A total of 6 ml solution containing 10 mg Dexamethasone, and 5 ml preservative-free Normal Saline was injected slowly with intermittent aspiration. The needle was removed intact, area was cleaned and bandage was applied. Disposition : The patient tolerated the procedure very well. The patient was transferred to the recovery room and remained stable until discharged home. The patient was given detailed discharge instructions for bleeding, infection, increased pain at the injection site, and was advised to seek immediate medical attention should significant side effects develop. The patient will be followed up with our Pain Clinic within 4 weeks for follow-up visit.
[2020-09-08] MEDS ORDERED: LACTATED RINGERS 1,000 ML IV SCH (09:30)
--- NOTE | 2020-09-08 09:36 | FL ---
EXAMINATION TYPE: FL guided pain mgmt statistic DATE OF EXAM: 09/08/2020 HISTORY: Fluoroscopy time 7 seconds of fluoroscopy provided. IMPRESSION: 1. Fluoroscopy time.
[2020-09-08] MEDS ORDERED: IV FLUID CONTINUATION 1,000 ML IV ONE (09:39)
[2020-09-08 09:40] VITALS: BP 145/62; PULSE 66
== END 2020-09-08 09:58 | disposition home or self-care (01) ==
LOC: ORPAIN 08:02
DX: M54.12 Radiculopathy, cervical region (principal); I10 Essential (primary) hypertension; E11.9 Type 2 diabetes mellitus without complications; Z90.710 Acquired absence of both cervix and uterus; Z98.890 Other specified postprocedural states; Z79.1 Long term (current) use of non-steroidal anti-inflammatories (NSAID); Z91.013 Allergy to seafood
CPT/HCPCS: 62321; J2250; J1100; J3010; Q9966; 99152

== ENCOUNTER → 2020-09-29 | Outpatient (CLI) | payer BC | END | disposition home or self-care (01) | LOC: LABPAT 14:16 | PROVIDERS: ATTEND Orthopaedic Surgery | DX: Z01.812 Encounter for preprocedural laboratory examination (principal); M47.812 Spondylosis without myelopathy or radiculopathy, cervical region; M43.16 Spondylolisthesis, lumbar region | CPT/HCPCS: 87070 ==

== ENCOUNTER → 2020-10-05 | Outpatient (CLI) | payer BC ==
--- NOTE | 2020-10-05 09:12 | P.PN ---
Progress Note - Text Progress Note Date: 10/05/20 This is a follow-up visit for this 54 years old female with a chronic history of severe low back pain, and severe neck pain, she is very close with lumbar radiculopathy lumbar degenerative disc disease and lumbar spondylosis with lumbar facet arthropathy and lumbar spinal stenosis, and cervical degenerative disc disease and cervical spondylosis previously we have done transforaminal epidural steroid injection in the lumbar area and cervical area, patient had minimal benefit after the injection, she continued to have severe pain ,and numbness and tingling sensation in the in the upper and lower extremities, most of the pain is in the low back area she is scheduled to have surgical intervention to be done next week by Dr. Joaquin, at [facility], she feels some weakness in the lower extremity, she continued to use NSAIDs and Tylenol for pain , she denies any side effects of the medication patient will follow up in the pain clinic when necessary
== END ==
CPT/HCPCS: 36415; 86850; 86900; 86901; 99211

== ENCOUNTER 2020-10-13 06:06 | Observation (INO) | payer BC ==
[2020-10-12 08:04] VITALS: BMI 49.4
--- NOTE | 2020-10-12 08:43 | P.HPOR ---
History of Present Illness H&P Date: 10/08/20 Chief Complaint: Back pain, leg pain neurogenic claudication Gayla Tucker is a 55 year old female presenting for evaluation of sudden onset of low back pain, LE pain, leg weakness difficulty with ambulation. It was my pleasure to have seen and examined Ms. Tucker. In our visit today we have had a chance to go over subjective complaints, physical examination findings and treatments, including the natural course history without intervention and various interventional options. The imaging demonstrates L4-5 Grade I spondylolisthesis unstable. . On physical exam, Ms. Tucker demonstrates neurogenic claudication, le weakness and radiculopathy . 54-year-old female presents for follow-up of her low back and cervical spine pain. States that her low back is becoming unbearable she has tried spuy-jyd-hpucyrt medications prescription medications injections physical therapy home exercise program all to no avail she continues to have low back pain as well as left lower extremity pain and weakness. He states that her left lower extremity is becoming more numb now she seems to have progressive weakness in the left lower extremity as well. Start her neck goes she states that it it is pales in comparison to her lower extremities in her back she has had inje ctions into her neck which seemed to help the left side however now her right sides having some issues with numbness but she states that she can deal with that but she cannot deal with her low back anymore as it is affecting her day-to-day living and is causing her to have difficulties to perform her job. She states no peroneal numbness or tingling no bowel or bladder issues at this time no fevers chills shortness of breath or chest pain. I explained to the patient that as her condition progresses it could cause progressive symptoms without resolution . At this time, based on the patients im aging and physical exam, I recommend surgery in the form or a: L4-5 TLIF . I discussed the risk and benefits of this procedure at length with Ms. Tucker. The patient agreed to consider pursuing the procedure mentioned above. HISTORY: Physical Therapy: Yes How many sessions? 20 Did it help? No Injections: Yes How many? 4 Did they help? No Activity Modifications: Yes Brace: No Review of Systems 14 points review of systems completed and as stated in HPI, all other systems reviewed are negative. Past Medical History Past Medical History: Asthma, Diabetes Mellitus, GERD/Reflux, Hyperlipidemia, Hypertension, Osteoarthritis (OA), Pulmonary Embolus (PE), Thyroid Disorder Additional Past Medical History / Comment(s): NECK PAIN AND BACK PAIN ,PE X2 History of Any Multi-Drug Resistant Organisms: MRSA Date of last positivie culture/infection: 2010 MDRO Source:: lower extremities Past Surgical History: Hysterectomy, Orthopedic Surgery Additional Past Surgical History / Comment(s): right ankle Past Anesthesia/Blood Transfusion Reactions: No Reported Reaction Smoking Status: Former smoker - Past Family History Father Family Medical History: Coronary Artery Disease (CAD), Diabetes Mellitus Mother Family Medical History: Cancer Additional Family Medical History / Comment(s): CERVICAL CANCER Medications and Allergies Home Medications Medication Instructions Recorded Confirmed Type Atorvastatin [Lipitor] 20 mg PO HS 10/22/14 10/12/20 History Metoprolol Succinate [Toprol XL] 100 mg PO DAILY 10/22/14 10/12/20 History hydroCHLOROthiazide 25 mg PO DAILY 10/22/14 10/12/20 History Venlafaxine HCl [Effexor XR] 150 mg PO BID 05/27/18 10/12/20 History lisinopriL 30 mg PO DAILY 05/27/18 10/12/20 History metFORMIN HCL [Glucophage] 1,000 mg PO BID 05/27/18 10/12/20 History Acetaminophen [Tylenol 8 Hour] 1,300 mg PO Q8H PRN 05/14/20 10/12/20 History Esomeprazole Magnesium [NexIUM] 20 mg PO DAILY 05/14/20 10/12/20 History Meloxicam [Mobic] 15 mg PO DAILY 05/14/20 10/12/20 History Naproxen Sodium [Aleve] 440 mg PO BID PRN 05/14/20 10/12/20 History Allergies Allergy/AdvReac Type Severity Reaction Status Date / Time shellfish derived [Shellfish] AdvReac ITCHY Verified 10/09/20 15:54 MOUTH & VOMITING Physical Examination Osteopathic Statement: *. No significant issues noted on an osteopathic structural exam other than those noted in the History and Physical/Consult. PHYSICAL EXAMINATION: General: Awake, alert, appropriate for age, in no acute distress. HEENT: No unusual neck masses around region of lateral neck triangle, thyroid, supraclavicular groove Heart: Regular rate and rhythm, normal S1, S2 and no murmur/gallop. Lungs: Clear to auscultation bilaterally with no use of accessory muscles. Extremities: Skin warm and dry without acute lesions, coloration, temperature, skin intact, no tenderness or erythema Integument: Hairy patches: Absent Dorsal skin dimples: Absent Cafe au lait spots: Absent Surgical incisions: none Palpation: Please see Pain drawing on Intake sheet for further detail. Midline spinal tenderness: yes lumbar sacral E6 Paralumbar tenderness: yes bilateral E6 Parathoracic tenderness: No E6 Buttocks tenderness: No E6 Special findings: negative ballottement negative SI to testing POSTURAL and MUSCULO-SKELETAL EVALUATION: Coronal Balance: Neutral Recumbent testing: Patient is to lay flat on back Sagittal Balance: Neutral Shoulder Profile: [Level] Pelvic Girdle: [Level] Neck ROM: Unrestricted Lumbar ROM: restricted secondary to pain Shoulder ROM: Symmetric in abduction, ER/IR Hip ROM: Symmetric in abduction, adduction, ER/IR Knee ROM: Symmetric and intact in Flexion / extension Hands: symmetrical Feet: symmetrical VASCULAR STATUS : LEFT RIGHT Wrist Pulses intact intact Pedal Pulses (Dors. pedis & post.tibialis) intact intact Color normal normal Edema Absent Absent NEUROLOGIC EXAMINATION: Mental Status: Awake and alert, fully oriented, with normal attention, concentration and memory, and fluent, appropriate speech. Cranial Nerves: I: Olfactory not tested. II: Visual acuity normal, no visual field deficit noted with confrontation. III,IV: Normal pupillary reflexes & intact extraocular movements without nystagmus. V,: Intact symmetrical facial sensation. VII: Intact symmetrical facial motor movement VIII: Hearing intact. IX,X: Intact gag, swallow, & normal voice. XI: Sternocleidomastoid, trapezius function intact. XII: Tongue midline with normal movements. L'hermitte's Sign: Negative / absent Spurling'Sign: Absent bilaterally. Cubital percussion test: Absent bilaterally. Lillian-Tinel sign - Carpal region: Absent bilaterally. Straight Leg Raising: Absent bilaterally. Crossed straight leg raise: positive O8 MOTOR EXAM (0-5/5, N/T) STRENGTH RIGHT LEFT Shoulder Abd (not part of the NUPUR score) 4 4 Elbow Flexors 4 4 Elbow Extensor 4 4 Wrist Dorsiflexors 4 4 Finger Abductor 5 5 Pharmacy Intake Technician 4 4 Hip Flexor (Not part of NUPUR Motor score) 5 5 Knee Flexor 5 5 Knee Extensor 5 4 Ankle dorsiflexor 5 4 Ankle plantarflexion 5 4 Extensor hallucis 5 5 REFLEXES(0-4/2, NT) RIGHT LEFT Upper Extremities 2 2 Lower Extremities 2 2 Pathological Reflexes RIGHT LEFT Souza's Absent Absent Clonus Absent Absent # Indicates mechanical impairment negative Babinskis bilaterally Muscle appearance: symmetrical Rectal Tone: Normal, strong with volition control Sensory system (0-4, N/T) Test type RU DEAN RL LL Joint-Position 2 2 2 2 Vibration 2 2 2 2 Pain & LT sense 2 2 2 2 Dermatomal Deficit: n n n n Gait and Functional Evaluation: Ambulatory aids: Independent Romberg's test: Intact bilaterally Toe heel walk / heel-toe walk intact while maintaining satisfactory balance? yes Squatting/straightening w/o assistance to a min of 60 degree knee flexion? yes Single leg stance: Trendelenburg sign negative bilaterally Hand and finger dexterity intact bilaterally? yes Disdiadochokinesis examination negative bilaterally? yes Results MRIs and x-rays reviewed again. The patient has a grade 1 unstable spondylolisthesis L4-L5 which accentuates to grade 2 in flexion and reduces on extension. She has stenosis related to this. X-rays and MRI of the cervical spine are again reviewed which demonstrates C4 5 C5 6 stenosis secondary to chronic disc herniations no myelomalacia noted no fracture dislocation on any of these films no other instability noted. Assessment and Plan Assessment: 1. L4-5 Grade I, unstable spondylolisthesis 2. Neurogenic claudication Plan: 1. L4-5 Minimally invasive transforaminal lumbar interbody fusion 2. Follow up with PCP for surgical clearance 3. Review of surgical risks and benefits as well as an educational packet on the proposed surgical procedure. Risks: All surgical procedures come with inherent risks, including those related to po sitioning, anesthesia, intraoperative findings, and postoperative complications. It is important to understand that surgery does not come with any guarantee of a successful outcome as complications and adverse events are always possible. The patient was given a handout in office today discussing the surgical procedure and risks associated with the intervention, both of which were discussed with the patient. These risks include but are not limited to the following: ? Experiencing same, different or even worse symptoms in back, neck, arms, or legs compared to before surgery. ? Requiring further surgery or other forms of treatment presently or at some time in the future at same or other levels of the intended spine surgery. ? On an extreme but fortunately relatively rare basis severe complication such as blindness, stroke, heart attack, temporary and/or permanent nerve injury, paralysis, coma, or may occur, sometimes without known explanation. ? Surgical complications may include but are not limited to risk of infection, fluid accumulation in the surgical dissection site, including a seroma or hematoma, that requires additional surgery, wound drainage, bleeding, new numbness or weakness, vision changes/loss, spinal fluid leakage, non-healing and/or infected incision, headaches, difficulty or inability to swallow, hoarseness, hemopneumothorax, pneumothorax, impotence, retrograde ejaculation, vaginal dryness; injury to nerves, spinal cord, blood vessels, lymphatics or other vital organs (i.e., bowel injury, injury to the great vessels); h eterotopic bone formation; complications related to the hardware such as screws, rods, cages including misplaced hardware, device failure, instrumentation at the wrong spine level, hardware fracture/breakage, or hardware loosening; vertebral failure of the spinal column above or below the newly placed hardware; retained surgical instrumentations or devices and the need for further surgery. ? Medical risks of the planned spine surgery include but are not limited to generalized Infections to the whole body or local areas outside of the surgical site (sepsis), heart attack, bleeding, anaphylaxis, meningitis, seizure, epilepsy, hearing loss, burn aguayo, laceration of the head or other areas of the body, bruising, hypersensitivity of the skin, bladder over distension; allergic reaction; shoulder injury related to positioning; fat, blood and air clots to other areas of the body like heart, lungs, brain; failure of internal organs such as lungs, kidneys, liver and excessive bleeding. If blood transfusions are necessary, note that transfusions may cause intolerance reactions such as anaphylaxis or other complex reactions. Despite best efforts, the results of spine surgery might not heal in terms of bone, soft tissues such as skin, fascia, ligaments, and joints. Additionally, in order to achieve best possible results, spine surgery may be carried out beyond the initially planned levels and involve decompression, fusion including insertion of hardware at levels other than the original intended area of surgical interest change some portions of the procedure in order to ensure the best possible outcomes. With spine surgery and spinal fusion, there are different off label uses of instrumentation (devices, implants and hardware) as well as biological substances (bone morphogenic proteins, demineralized bone matrix) as well as using extra bone from allograft sources (i.e. cadaver bone) or autograft (iliac crest bone, ribs, or the spine itself). The patient has been given information about these practices and their inherent risks and benefits. Anali Mcneil Physician Assistants are medically trained surgical providers who function in the outpatient, inpatient, and operating room setting under the direct supervision of the attending surgeon.They assist in the operating room with direct supervision of the attending surgeons. The patient has had a chance to review all the listed information, has been given print outs detailing this information, and has had all his/her questions answered to their satisfaction. It was my pleasure to have seen and examined Ms. Tucker. In our visit today we have had a chance to go over my understanding of our patient's current condition, the natural course history without intervention and various interven tional options. Questions were invited and answered, and the patient wishes to proceed as outlined above. I have seen and examined the patient for 25 minutes and we have spent more than 50% of the time in repeat and detailed counseling about the patient's condition, its natural course history with out and as much as can be predicted with surgery and re-review of various surgical treatment options. In conclusion,Ms. Tucker and her spouse/partner requested we proceed with the above suggested surgery and are willing to accept risks and limitations of the suggested surgery as nature of the disease process and our best attempts at treatment for the condition. Thank you again for allowing us to be part of your patient's care. Please don't hesitate to contact me if you have any further questions. Signed and authenticated by: Jhonny Wynne [facility] [address] [employer], [address] [address]
[~2020-10-13 06:06] MED LIST changes: +ACETAMINOPHEN TAB 500 MG TAB PO PRN; +DEXAMETHASONE SOD PHOSPHATE 4 MG/ML 1 ML VIAL IV ONE; +GABAPENTIN 300 MG CAP PO PRN; +GENTAMICIN 400 MG in SODIUM CHLORIDE 0.9% 100 ML IVPB PRN; -LACTATED RINGERS 1,000 ML IV SCH; +LIDOCAINE 1% (10MG/ML) FOR IV START INTRADERMA PRN; +MIDAZOLAM 2 MG/2 ML VIAL IV PRN; +ONDANSETRON 4 MG/2 ML VIAL IVP PRN; +TRANEXAMIC ACID 1,000 MG in SODIUM CHLORIDE 0.9% 100 ML IVPB PRN; +VANCOMYCIN 1,750 MG in SODIUM CHLORIDE 0.9% 500 ML 500 ML IVPB PRN
[2020-10-13 06:58] LABS: Glucose,Whole Blood 144 mg/dL (75-99)
[2020-10-13] MEDS ORDERED: HYDROmorphone 0.5 MG/0.5 ML SYRINGE IVP PRN (07:00)
[2020-10-13] MEDS ORDERED: FAMOTIDINE 20 MG/2 ML VIAL IV PRN (07:00)
[2020-10-13] MEDS: LACTATED RINGERS 1,000 ML IV SCH (07:02)
[2020-10-13] MEDS ORDERED: LIDOCAINE 2% SYG (PF) 100 MG/5 ML ONE (07:28)
[2020-10-13] MEDS ORDERED: PROPOFOL 10 MG/ML 20 ML VIAL IV ONE (07:28)
[2020-10-13] MEDS ORDERED: KETAMINE 10 MG/ML 20 ML VIAL ONE (07:28)
[2020-10-13] MEDS ORDERED: fentaNYL (PF) 50 MCG/ML 2 ML AMP ONE (07:28)
[2020-10-13] MEDS ORDERED: SODIUM CHLORIDE 0.9% 100 ML BAG ONE (07:28)
[2020-10-13] MEDS ORDERED: SUCCINYLCHOLINE CHLORIDE 100 MG/5 ML SYR IV ONE (07:28)
[2020-10-13] MEDS ORDERED: HYDROmorphone (PF) 1 MG/ML ONE (07:28)
[2020-10-13] MEDS ORDERED: GLYCOPYRROLATE 0.2 MG/ML 2 ML VIAL ONE (07:28)
[2020-10-13] MEDS ORDERED: TRANEXAMIC ACID 1,000 MG/10 ML VIAL ONE (07:28)
[2020-10-13] MEDS ORDERED: MIDAZOLAM 2 MG/2 ML VIAL ONE (07:28)
[2020-10-13] MEDS ORDERED: THROMBIN (BOVINE) 5,000 UNIT VIAL MISCELLANE ONE (08:48)
[2020-10-13] MEDS ORDERED: GELATIN SPONGE,ABSORB (LARGE) 1 EACH SPONGE MISCELLANE ONE (08:48)
[2020-10-13] MEDS ORDERED: ceFAZolin 1,000 MG in SODIUM CHLORIDE 0.9% 1,000 ML IRRIGATION ONE (09:33)
[2020-10-13] MEDS ORDERED: VANCOMYCIN 1,000 MG VIAL MISCELLANE ONE (11:06)
[2020-10-13] MEDS ORDERED: CYCLOBENZAPRINE 10 MG TAB PO PRN (11:34)
[2020-10-13] MEDS ORDERED: VANCOMYCIN IV PER PHARMACY 1 EACH MISC MISCELLANE PRN (11:35)
[2020-10-13] MEDS ORDERED: GENTAMICIN PER PHARMACY MISCELLANE PRN (11:36)
[2020-10-13] MEDS ORDERED: NALOXONE 0.4 MG/ML 1 ML VIAL IV PRN (11:43)
--- NOTE | 2020-10-13 11:58 | FL ---
EXAMINATION TYPE: FL guidance operating room, XR lumbar spine 2 or 3V DATE OF EXAM: 10/13/2020 CLINICAL HISTORY: Lumbar spondylolisthesis TECHNIQUE: Fluoroscopy. Intraoperative 2 views lumbar spine. COMPARISON: CT lumbar spine August 03, 2020 MRI lumbar spine July 30, 2020. FINDINGS: Fluoroscopic guidance was provided during posterior lumbar decompression and lumbar fusion procedure performed by Dr. Joaquin. A total of 4:39 minutes of fluoroscopic time was utilized du ring the procedure and 15 spot intraoperative images are acquired. Intraoperative images obtained show advancement of surgical hardware with subsequent L4-L5 posterior intrapedicular henrik and screw and metallic disc material placement procedure. Alignment is satisfactor y on intraoperative images obtained. IMPRESSION: As Above.
[2020-10-13 12:30] LABS: Glucose,Whole Blood 216 mg/dL (75-99)
[2020-10-13] MEDS ORDERED: INSULIN ASPART (NovoLOG) 100 UNIT/ML VIAL SQ ONE (12:32)
[2020-10-13] MEDS ORDERED: LABETALOL SYRINGE 5 MG/ML IVP ONE (13:06)
[2020-10-13 13:24] LABS: Amorphous Sediment,Urine Rare /hpf; Appearance,Urine Turbid (Clear); Bacteria,Urine Many /hpf; Bilirubin,Urine Negative (Negative); Blood,Urine Negative (Negative); Color,Urine Yellow; Glucose,Urine (UA) Negative (Negative); Ketones,Urine Trace (Negative); Leukocyte Esterase,Urine Moderate (Negative); Mucus,Urine Occasional /hpf; Nitrite,Urine Positive (Negative); PH, Urine 5.5 (5.0-8.0); Protein,Urine 1+ (Negative); RBC,Urine 1 /hpf (0-5); Specific Gravity,Urine 1.031 (1.001-1.035); Squamous Epithelial Cell,Urine 1 /hpf (0-4); Urobilinogen,Urine <2.0 mg/dL (<2.0); WBC,Urine 18 /hpf (0-5)
[2020-10-13] MEDS: GABAPENTIN 300 MG CAP PO SCH ×2 (16:43→21:39)
[2020-10-13] MEDS: HYDROcodone/APAP 5-325MG 1 EACH TAB PO PRN (16:43)
--- NOTE | 2020-10-13 18:18 | CT ---
EXAMINATION TYPE: CT lumbar spine wo con DATE OF EXAM: 10/13/2020 6:09 PM COMPARISON: CT August 03, 2020. Intraoperative x-rays earlier today HISTORY: Post surgical L4-L5 fusion. CT DLP: 1980 mGycm Automated exposure control for dose reduction was used. Unenhanced CT of the lumbar spine was performed. Bone and soft tissue window settings are submitted as well as coronal and sagittal reconstructions. There are 5 lumbar type vertebra redemonstrated. New metallic disc material L4-L5 level. New posterio r interpedicular rods and screws bilaterally L4-L5 level. Stable slight grade 1 anterolisthesis L4 an d L5. Vertebral body heights are maintained. Disc space heights above and below surgical levels are s table and preserved. Spinal canal is preserved. New dependent atelectatic change in the lung bases. Diffuse fatty infiltration of liver is noted. Gal lbladder has distended margins likely product of fasting state. Axial images show ill-defined fluid i n the deep subcutaneous air mid to lower lumbar spine at site of surgery. Facet arthropathy lower lum bar levels redemonstrated. IMPRESSION: As above. Stable alignment at the L4-L5 level after surgical fusion. Screw positioning is thought satisfactory.
[2020-10-13] MEDS ORDERED: ONDANSETRON 4 MG/2 ML VIAL IVP PRN (18:39)
[2020-10-13 19:02] LABS: African American GFR (CKD) >90 (>60 ml/min/1.73 sqM); Anion Gap 10 mmol/L; Blood Urea Nitrogen 19 mg/dL (7-17); Calcium 8.9 mg/dL (8.4-10.2); Carbon Dioxide 25 mmol/L (22-30); Chloride 100 mmol/L (98-107); Glucose 179 mg/dL (74-99); Non-African American GFR(CKD) >90 (>60 ml/min/1.73 sqM); Potassium 4.6 mmol/L (3.5-5.1); Sodium 135 mmol/L (137-145)
[2020-10-13] MEDS: VANCOMYCIN 2,000 MG in SODIUM CHLORIDE 0.9% 500 ML 500 ML IVPB SCH (19:12)
[2020-10-13] MEDS: 0.9% NACL WITH KCL 20 MEQ/L 1,000 ML IV SCH (19:19)
[2020-10-13 20:47] LABS: Glucose,Whole Blood 176 mg/dL (75-99)
[2020-10-13] MEDS: INSULIN ASPART (NovoLOG) 100 UNIT/ML VIAL SQ SCH (21:39)
[2020-10-13] MEDS: HYDROmorphone 0.5 MG/0.5 ML SYRINGE IVP PRN (22:35)
[2020-10-13] MEDS: ACETAMINOPHEN TAB 325 MG TAB PO SCH (23:27)
[2020-10-14] MEDS: HYDROcodone/APAP 5-325MG 1 EACH TAB PO PRN ×2 (01:50→23:43)
[2020-10-14] MEDS: ACETAMINOPHEN TAB 325 MG TAB PO SCH ×4 (05:56→23:46)
[2020-10-14 06:40] LABS: Basophils % (A) 0 %; Eosinophils % (A) 0 %; HCT 33.6 % (34.0-46.0); HGB 11.5 gm/dL (11.4-16.0); Lymphocytes # (A) 1.4 k/uL (1.0-4.8); Lymphocytes % (A) 13 %; MCHC 34.3 g/dL (31.0-37.0); MCV 90.3 fL (80.0-100.0); Mean Platelet Volume 7.4; Monocytes # (A) 0.6 k/uL (0-1.0); Monocytes % (A) 5 %; Neutrophils # (A) 8.8 k/uL (1.3-7.7); Neutrophils % (A) 81 %; Platelet Count 263 k/uL (150-450); RBC 3.72 m/uL (3.80-5.40); RDW 12.3 % (11.5-15.5); WBC 10.8 k/uL (3.8-10.6)
[2020-10-14 07:16] LABS: Glucose,Whole Blood 167 mg/dL (75-99)
--- NOTE | 2020-10-14 08:08 | P.PN ---
Subjective Progress Note Date: 10/14/20 Principal diagnosis: Spondylolisthesis L4 5 Patient seen and examined this morning. She is slightly painful as morning and sore however she has been up and about. She still has a Schroeder in place she is otherwise doing fairly well and she states when she gets up she is able to move fairly well. She denies any perineal numbness or tingling she denies any bladder or bowel or bladder issues she states that she is doing fairly well overall denies any fevers chills shortness of breath or chest pain at this time Objective - Vital Signs Vital signs: Vital Signs Temp 98 F 10/14/20 05:00 Pulse 85 10/14/20 05:00 Resp 16 10/14/20 05:00 BP 146/69 10/14/20 05:00 Pulse Ox 92 L 10/14/20 05:00 Intake & Output 10/13/20 10/14/20 10/14/20 18:59 06:59 18:59 Intake Total 2311 2000 Output Total 335 2850 Balance 1975 - Intake: IV 2011 Intake, IV Titration 1400 Amount 0.9% NaCl with KCl 20 Meq 900 /l 1,000 ml @ 75 mls/hr IV .[id number] Rx#: [id number] Vancomycin 2,000 mg In 500 Sodium Chloride 0.9% 500 ml 500 ml @ 167 mls/hr IVPB Q12H DAWIT Rx#: [id number] Oral 300 600 Output: Urine 235 2850 Estimated Blood Loss 100 Other: Voiding Method Indwelling Catheter - Exam Patient is alert and oriented 3 appears well-nourished well-hydrated is in no acute distress. They does not appear septic. On exam the patient has no tenderness to palpation of her thoracic or lumbar spine. There is no edema or ballottement sign. Lower extremities with 5 out of 5 strength in all major muscle groups Upper extremities show 5/5 strength in all major muscle groups. There is FROM that is painless of the b/l UE and LE in all major joints. They are intact to light touch sensation in L2 to S1 nerve distribution. Patient has palpable dorsalis pedis was posterior tibial pulses. Compartments are soft and compressible. Patient shows a negative Homans, Souza's, negative Babinski's negative clonus bilaterally. negative straight leg raise bilaterally. No tensioning signs. Cranial nerves II through XII are grossly intact. Overall alignment is well-maintained in the sagittal coronal planes. DTR 2/4 all upper and lower Dressing is clean and dry at this time Minimal tenderness to palpation around incisions No fluctuance or hematoma - Labs CBC & Chem 7: 10/14/20 05:34 10/13/20 18:27 Labs: Abnormal Lab Results - Last 24 Hours (Table) 10/13/20 10/13/20 10/13/20 Range/Units 11:15 12:28 18:27 WBC (3.8-10.6) k/uL RBC (3.80-5.40) m/uL Hct (34.0-46.0) % Neutrophils # (1.3-7.7) k/uL Sodium 135 L (137-145) mmol/L BUN 19 H (7-17) mg/dL Glucose 179 H (74-99) mg/dL POC Glucose (mg/dL) 216 H (75-99) mg/dL Urine Appearance Turbid H (Clear) Urine Protein 1+ H (Negative) Urine Ketones Trace H (Negative) Urine Nitrite Positive H (Negative) Ur Leukocyte Esterase Moderate H (Negative) Urine WBC 18 H (0-5) /hpf Amorphous Sediment Rare H (None) /hpf Urine Bacteria Many H (None) /hpf Urine Mucus Occasional H (None) /hpf 10/13/20 10/14/20 10/14/20 Range/Units 20:45 05:34 07:14 WBC 10.8 H (3.8-10.6) k/uL RBC 3.72 L (3.80-5.40) m/uL Hct 33.6 L (34.0-46.0) % Neutrophils # 8.8 H (1.3-7.7) k/uL Sodium (137-145) mmol/L BUN (7-17) mg/dL Glucose (74-99) mg/dL POC Glucose (mg/dL) 176 H 167 H (75-99) mg/dL Urine Appearance (Clear) Urine Protein (Negative) Urine Ketones (Negative) Urine Nitrite (Negative) Ur Leukocyte Esterase (Negative) Urine WBC (0-5) /hpf Amorphous Sediment (None) /hpf Urine Bacteria (None) /hpf Urine Mucus (None) /hpf Microbiology - Last 24 Hours (Table) 10/13/20 11:15 Urine Culture - Preliminary Urine,Voided Assessment and Plan Assessment: 1. L4-5 Grade I, unstable spondylolisthesis 2. Neurogenic claudication Plan: -Appreciate medicine management. Symptom Control: -Pain control: Adequate at this time . Would recommend low on the narcotic side of pain medications if needed. Could try a muscle relaxer as well Activity -Aggressive ambulation protocol. OOB with all meals. OOB or in chair 4-5x daily. -PT/OT No braces needed Prophylaxis: -TEDs, SCDs, mechanical ppx. OK for heparin today. Early ambulation is best. -GI ppx. Imaging/labs: Computed tomography scan reviewed and demonstrates good hardware placement with good reduction spondylolisthesis No further imaging needed -Trend labs as appropriate Intervention: Ice to low back Dispo: Home likely tomorrow
[2020-10-14] MEDS: VANCOMYCIN 2,000 MG in SODIUM CHLORIDE 0.9% 500 ML 500 ML IVPB SCH ×2 (08:24→19:08)
[2020-10-14] MEDS: SENNOSIDES 8.6 MG TAB PO SCH (08:24)
[2020-10-14] MEDS: GABAPENTIN 300 MG CAP PO SCH ×3 (08:24→21:17)
[2020-10-14] MEDS: INSULIN ASPART (NovoLOG) 100 UNIT/ML VIAL SQ SCH ×4 (08:24→21:17)
[2020-10-14] MEDS ORDERED: GENTAMICIN 400 MG in SODIUM CHLORIDE 0.9% 100 ML IVPB SCH (09:00)
[2020-10-14] MEDS: HYDROmorphone 0.5 MG/0.5 ML SYRINGE IVP PRN ×2 (10:38→18:04)
[2020-10-14 10:57] LABS: Glucose,Whole Blood 258 mg/dL (75-99)
[2020-10-14] MEDS: 0.9% NACL WITH KCL 20 MEQ/L 1,000 ML IV SCH ×2 (11:41→23:46)
[2020-10-14] MEDS: METOPROLOL SUCCINATE (ER) 100 MG TAB.ER.24H PO SCH (11:43)
[2020-10-14] MEDS: lisinopriL 10 MG TAB PO SCH (11:43)
[2020-10-14] MEDS: VENLAFAXINE HCL ER 150 MG CAP PO SCH ×2 (11:43→21:27)
--- NOTE | 2020-10-14 12:18 | P.OP ---
Date of Procedure: 10/13/20 Preoperative Diagnosis: 1. L4-5 Grade II unstable spondylolisthesis 2. B/L LE radiculopathy 3. Mechanical back pain 4. Obesity Postoperative Diagnosis: 1. L4-5 Grade II unstable spondylolisthesis 2. B/L LE radiculopathy 3. Mechanical back pain 4. Obesity Procedure(s) Performed: 1. L4-5 posteriolateral interbody fusion 2. L4-5 spondylolisthesis reduction 3. Use of intraooperative neuromonitoring Implants: [place] everest screws x4 Flarehawk 9 cage with 12 mm 15 deg lordotic bárbara Autograft Bio4 Allograft Anesthesia: GETA Surgeon: Jhonny Joaquin Ctrs #1: Nicolas Aceves (Was present for the entire case and necessary due to the complexity of the case) Estimated Blood Loss (ml): 100 IV fluids (ml): 2,500 Urine output (ml): 250 Pathology: none sent Condition: stable Disposition: PACU Indications for Procedure: 55 yo female presented with c/o back pain, feeling of instability, neurogenic claudication and b/l LE weakness and pain for several years. It has gotten worse over the past 6-8 months despite conservative measures like PT, home exercises, RX and OTC medications, injections and pain management. She was found to have b/l Pars defects with a mobile Grade II sponydlolisthes at L4-5. She has elected to undergo L4-5 TLIF for treatment. We discussed risks and benefits at length and these are outlined in risk review. She is willing to proceed with surgery. Operative Findings: Unstable, but reducible L4-5 Grade II sponydlolisthesis. Description of Procedure: The patient was seen and examined in the preoperative area. All preoperative protocols were followed. Informed consent was obtained risks and benefits of the procedure were discussed at length. Risks including bleeding infection damage to the surrounding tissue and risk of reoperation were discussed with the patient. Risk of anesthesia up to and including was a discussed with the patient. These are outlined in the risk review. They were willing to accept these risks and all of the risks of surgery. The patient was given a weight- based dose of antibiotics in the form of vancomycin weight-based dose as well as gentamicin weight-based dose. The patient was seen and evaluated by the anesthesia team who deemed them fit for surgery. The site was marked, the patient was willing to proceed with the procedure. The patient was transferred to the operative suite by the Department of anesthesia. They were then drifted off to sleep by the department anesthesia GETA . The patient tolerated this well. [Schroeder catheter was placed by nursing staff, atraumatically]. Once confirmation of lines and ventilation the patient was transferred to a [prone Skip table very carefully]. All bony prominences including wrists, elbows, axilla, chest, hips, and thighs, and feet were padded very well. Special attention was paid to the genitalia and these were padded accordingly. SCDs were placed on bilateral lower extremities and were connected. Arms were well padded and placed [on arm boards up and out in the 90/90 position]. Once in position, again we confirmed good ventilation capabilities and that lines were running appropriately. The patient's lumbar spine was then exposed. 1010s were placed outlining the incision site. Standard alcohol was used to clean the incision site and allowed to dry. C-arm was used to biomark the patient and confirm level for incision which was marked with a skin marker. Operative briefing was performed with all teams and everyone in agreement to proceed. The patient was then prepped and draped in a normal sterile fashion. Timeout was then performed and all parties were in agreement with the procedure to be performed. The previously bio Marked area was then infiltrated with quarter percent Marcaine without epinephrine. We then under AP and lateral fluoroscopy localized the L4 pedicles to be in line with L4 endplate on AP with the spinous processes centered. Under AP fluoroscopy we then advanced Jamshidi's into the L4 vertebral bodies under lateral we ensured their depth as well as that they were not too medial on AP. Wires were then placed the Jamshidi's remove wears was then snapped to the drape then localize the L5 pedicles on AP fluoroscopy and placed Jamshidi's bilaterally at L5 pedicles and past wires under lateral fluoroscopy and the Jamshidi's were then removed where snapped the drape incision was then made on the left-hand side between these wires to allow passage of a tube the initial dilator was then placed through the fascia to the pars region of the L4 5 disc space on the left. Sequential dilators were then placed until a 22 to was selected at 90 mm. The tube was then secured secured to the table with the flexible arm which was then locked into position. Once in position we then took AP and lateral fluoroscopy to confirm that the tube was in a good position in line with the disc space. The microscope was then brought in we performed limited myomectomy in this area as well as capsulotomy to visualize the joints. There are very overgrown. High-speed bur was then used to remove the anterior inferior articular facet of L4 and the superior articular facet of L5 opening the foramen on this side completely the nerve root was visualized was intact and was completely decompressed. We then proceeded with a limited laminotomy on the side to open up the area even more. We then under lateral fluoroscopy identified the disc space the disc space was accessed with a 15 blade followed by a sequential shaving. Shaving was performed up to a 12 shaver. This ensured that there was good clearance of disc material as well as cartilage from the bone. Bone was then scraped with a Smitha down biter. An bear claws used to prep the endplates. This is all done under AP and lateral fluoroscopy. Once discectomy was performed we did place bone graft minimally anterior to the cage and then after this the selected cage which was a flare hock 9 with a 12 mm 15 lordotic bárbara was selected. This was then impacted into place under lateral fluoroscopy. An oblique lateral was taken to ensure that the cage was lining up and it was once the cage was anterior enough and across midline with then inserted the bárbara which went in without any issues and audible click was felt It was in place and this was confirmed on the oblique lateral. We then back filled the cage with a combination of DBM and bio 4. There was good cage filled. The society reporter was then removed and the area inspected the nerve root was completely intact the dura was intact medially there was no evidence of leak meticulous hemostasis was performed with FloSeal as well as bipolar electrocautery. We irrigated this space out with normal sterile saline. The tubular retractor system was then carefully removed making sure to cauterize any bleeders on the way out. We then turned our attention to the placement of screws screw lengths were premeasured and selected we did place ferrous cell anchors in a washer type fashion around the proximal portion of the screws screw then selected and placed over the wires first at L4 and then at L5 using lateral fluoroscopy as guidance. Wires were removed once the screws reach the posterior body. We then tested the screws and all screws tested above 20 mA. We then selected a henrik and this was inserted. We first placed the set screws at L5 bilaterally with both rods and then sequentially reduced L4 on L5 with the set screws and towers this ensured good reduction of the spondylolisthesis. Once the set screws were in place we then final tightened them the tabs were then broken and ensured to come off completely. AP and lateral fluoroscopy confirmed good placement of rods good reduction of spondylolisthesis. We then copiously irrigated the wounds with normal sterile saline 3 L. We then closed the fascia with 0 Vicryl. Vancomycin powder was placed deep within the wound. Subcu was then closed with 2-0 Vicryl followed by 2-0 nylon in the skin. Wound edges approximated very well. There is an cleaned and sterilely dressed with Adaptic 4 x 4's and Tegaderms. The patient was transferred back to her hospital bed atraumatically. Patient was then awakened and extubated by the department of anesthesia having tolerated the procedure very well with no complications. She was transferred to the p ostoperative care unit in stable condition.
--- NOTE | 2020-10-14 15:13 | P.CONS ---
History of Present Illness - Reason for Consult Consult date: 10/14/20 Medical management - Chief Complaint Low back pain - History of Present Illness Patient is a 55-year-old female with known history of hypertension, hyperlipidemia, diabetes type 2 [id number], osteoarthritis, history of PE, hypothyroidism was admitted to the hospital with complaints of back pain and bilateral leg pain and weakness. Patient has been having worsening back pain with shooting down pain below the both legs and feeling weak. Patient is also complaining of lower extremity numbness patient had injections and prior coronary therapy without sustained improvement. Patient was admitted to the hospital for L4-L5 fusion surgery due to Bilateral lower extremity radiculopathy Patient underwent L4-L5 posterior lateral interbody fusion and spondylolisthesis reduction. CT lumbar spine showed stable alignment at the L4-L5 levels up to surgical fusion. Screw positioning is thought satisfactory. Review of Systems Constitutional: Patient denies any fever or chills . No generalized weakness or weight loss. Abdomen: Patient denied nausea vomiting and diarrhea and abdominal pain. Cardiovascular: Patient denies any chest pain or short of breath no palpitations. Respiratory: patient denied any cough is from production. No shortness of breath Neurologic: Patient denied any numbness or tingling headache. Musculoskeletal: Patient denies any complaints of joint swelling or deformity. Low back pain. Bilateral leg weakness. Skin: Negative Psychiatric: Negative Endocrine: No heat or cold intolerance. No recent weight gain. Genitourinary: No dysuria or hematuria. All other 14 point ROS negative except the above Past Medical History Past Medical History: Asthma, Diabetes Mellitus, GERD/Reflux, Hyperlipidemia, Hypertension, Osteoarthritis (OA), Pulmonary Embolus (PE), Thyroid Disorder Additional Past Medical History / Comment(s): NECK PAIN AND BACK PAIN ,PE X2 History of Any Multi-Drug Resistant Organisms: MRSA Year Discovered:: 2010 MDRO Source:: lower extremities Past Surgical History: Hysterectomy, Orthopedic Surgery Additional Past Surgical History / Comment(s): right ankle Past Anesthesia/Blood Transfusion Reactions: No Reported Reaction Smoking Status: Former smoker - Past Family History Father Family Medical History: Coronary Artery Disease (CAD), Diabetes Mellitus Mother Family Medical History: Cancer Additional Family Medical History / Comment(s): CERVICAL CANCER Medications and Allergies Home Medications Medication Instructions Recorded Confirmed Type Atorvastatin [Lipitor] 20 mg PO HS 10/22/14 10/13/20 History Metoprolol Succinate [Toprol XL] 100 mg PO DAILY 10/22/14 10/13/20 History hydroCHLOROthiazide 25 mg PO DAILY 10/22/14 10/13/20 History Venlafaxine HCl [Effexor XR] 150 mg PO BID 05/27/18 10/13/20 History lisinopriL 30 mg PO DAILY 05/27/18 10/13/20 History metFORMIN HCL [Glucophage] 1,000 mg PO BID 05/27/18 10/13/20 History Acetaminophen [Tylenol 8 Hour] 1,300 mg PO Q8H PRN 05/14/20 10/13/20 History Esomeprazole Magnesium [NexIUM] 20 mg PO DAILY 05/14/20 10/13/20 History Meloxicam [Mobic] 15 mg PO DAILY 05/14/20 10/13/20 History Naproxen Sodium [Aleve] 440 mg PO BID PRN 05/14/20 10/13/20 History Allergies Allergy/AdvReac Type Severity Reaction Status Date / Time shellfish derived [Shellfish] AdvReac ITCHY Verified 10/09/20 15:54 MOUTH & VOMITING Physical Exam Vitals: Vital Signs Temp Pulse Resp BP BP Pulse Ox 10/14/20 05:00 98 F 85 16 146/69 92 L 10/13/20 21:00 98.7 F 76 16 125/77 93 L 10/13/20 20:05 76 16 10/13/20 15:49 87 122/75 97 10/13/20 14:30 72 122/66 98 10/13/20 14:00 77 18 149/92 96 10/13/20 13:30 68 14 169/76 95 10/13/20 13:15 69 16 169/74 97 10/13/20 13:00 74 14 188/84 99 10/13/20 12:45 74 16 177/79 99 10/13/20 12:30 74 16 171/84 99 10/13/20 12:15 73 16 171/86 99 10/13/20 12:05 74 16 144/67 96 10/13/20 11:50 69 18 127/60 99 10/13/20 11:35 96.8 F L 71 18 133/63 99 Intake and Output 10/13/20 10/14/20 10/14/20 22:59 06:59 14:59 Intake Total 300 2000 Output Total 2850 Balance 300 -850 Intake: Intake, IV Titration 1400 Amount 0.9% NaCl with KCl 20 Meq 900 /l 1,000 ml @ 75 mls/hr IV .[id number] DAWIT Rx#: [id number] Vancomycin 2,000 mg In 500 Sodium Chloride 0.9% 500 ml 500 ml @ 167 mls/hr IVPB Q12H DAWIT Rx#: [id number] Oral 300 600 Output: Urine 2850 Other: Voiding Method Indwelling Catheter PHYSICAL EXAMINATION: Patient is lying in the bed comfortably, no acute distress, awake alert and oriented. Morbidly obese. HEENT: Normocephalic. Neck is supple. Pupils reactive. Nostrils clear. Oral cavity is moist. Neck reveals no JVD, carotid bruits, or thyromegaly. CHEST EXAMINATION: Trachea is central. Symmetrical expansion. Bibasilar dementia sounds. Lung fountain clear to auscultation and percussion. CARDIAC: Normal S1, S2 with no gallops. No murmurs ABDOMEN: Soft. Bowel sounds normal. No organomegaly. No abdominal bruits. Extremities: reveal no edema. No clubbing or cyanosis Neurologically awake, alert, oriented x3 with well-coordinated movements. No focal deficits noted Skin: No rash or skin lesions. Psychiatric: Coperative. Nonsuicidal Musculoskeletal: No joint swelling or deformity. Normal range of motion. Results CBC & Chem 7: 10/14/20 05:34 10/13/20 18:27 Labs: Abnormal Lab Results - Last 24 Hours (Table) 10/13/20 10/13/20 10/13/20 Range/Units 11:15 12:28 18:27 WBC (3.8-10.6) k/uL RBC (3.80-5.40) m/uL Hct (34.0-46.0) % Neutrophils # (1.3-7.7) k/uL Sodium 135 L (137-145) mmol/L BUN 19 H (7-17) mg/dL Glucose 179 H (74-99) mg/dL POC Glucose (mg/dL) 216 H (75-99) mg/dL Urine Appearance Turbid H (Clear) Urine Protein 1+ H (Negative) Urine Ketones Trace H (Negative) Urine Nitrite Positive H (Negative) Ur Leukocyte Esterase Moderate H (Negative) Urine WBC 18 H (0-5) /hpf Amorphous Sediment Rare H (None) /hpf Urine Bacteria Many H (None) /hpf Urine Mucus Occasional H (None) /hpf 10/13/20 10/14/20 10/14/20 Range/Units 20:45 05:34 07:14 WBC 10.8 H (3.8-10.6) k/uL RBC 3.72 L (3.80-5.40) m/uL Hct 33.6 L (34.0-46.0) % Neutrophils # 8.8 H (1.3-7.7) k/uL Sodium (137-145) mmol/L BUN (7-17) mg/dL Glucose (74-99) mg/dL POC Glucose (mg/dL) 176 H 167 H (75-99) mg/dL Urine Appearance (Clear) Urine Protein (Negative) Urine Ketones (Negative) Urine Nitrite (Negative) Ur Leukocyte Esterase (Negative) Urine WBC (0-5) /hpf Amorphous Sediment (None) /hpf Urine Bacteria (None) /hpf Urine Mucus (None) /hpf Microbiology - Last 24 Hours (Table) 10/13/20 11:15 Urine Culture - Preliminary Urine,Voided Assessment and Plan Assessment: Status post L4-L5 interbody fusion surgery. Postoperative day 1 Acute urinary tract infection Mild hypovolemic hyponatremia Hyperglycemia with uncontrolled diabetes type 2 Hypertension Osteoarthritis History of PE Hypothyroidism Previous history of smoking DVT prophylaxis. Morbid obesity with BMI 49.2 Plan: Patient will be continued on pain management, bowel regimen and incentive spirometry. DVT prophylaxis as per primary team. Oral hypoglycemics on hold currently and continue with insulin sliding scale and follow-up A1c level. TSH level was ordered. Continue with ceftriaxone and follow-up urine culture report. Condition at home blood pressure medications and further recommendations based on the clinical course. Continue to follow closely. Thank you for your consult. Time with Patient: Greater than 30
[2020-10-14 17:13] LABS: Hemoglobin A1C 6.9 % (4.0-6.0)
[2020-10-14 17:19] LABS: Glucose,Whole Blood 160 mg/dL (75-99)
[2020-10-14 20:43] LABS: Glucose,Whole Blood 239 mg/dL (75-99)
[2020-10-14] MEDS ORDERED: ATORVASTATIN 20 MG TAB PO SCH (21:00)
[2020-10-14] MEDS ORDERED: INSULIN DETEMIR (LEVEMIR) 100 UNIT/ML SYR SQ SCH (21:00)
[2020-10-15] MEDS: HYDROcodone/APAP 5-325MG 1 EACH TAB PO PRN ×2 (05:30→11:35)
[2020-10-15] MEDS: ACETAMINOPHEN TAB 325 MG TAB PO SCH (05:47)
[2020-10-15 07:10] LABS: Glucose,Whole Blood 161 mg/dL (75-99)
[2020-10-15] MEDS ORDERED: PANTOPRAZOLE 40 MG TABLET PO SCH (07:30)
--- NOTE | 2020-10-15 07:58 | P.PN ---
Subjective Progress Note Date: 10/15/20 Principal diagnosis: Spondylolisthesis L4 5 P s/e. Doing well. Up and about. No issues. voiding and pain is reasonably controlled. Denies any new sx. States some back pain. No leg pain. No bowel bladder issues. Wants to go home. Objective - Vital Signs Vital signs: Vital Signs Temp 98.7 F 10/15/20 05:00 Pulse 89 10/15/20 05:00 Resp 20 10/15/20 05:00 BP 162/89 10/15/20 05:00 Pulse Ox 94 L 10/15/20 05:00 Intake & Output 10/14/20 10/15/20 10/15/20 18:59 06:59 18:59 Intake Total 1999 Balance 1999 Intake: Intake, IV Titration 1400 Amount 0.9% NaCl with KCl 20 Meq 900 /l 1,000 ml @ 75 mls/hr IV .[id number] DAWIT Rx#: [id number] Vancomycin 2,000 mg In 500 Sodium Chloride 0.9% 500 ml 500 ml @ 167 mls/hr IVPB Q12H DAWIT Rx#: [id number] Oral 600 Other: Voiding Method Indwelling Catheter Toilet # Voids 3 - Exam Exam is stable today see below. Dressing is CDI. No drainage. No EEE. No TTP lumbar spine. Patient is alert and oriented 3 appears well-nourished well-hydrated is in no acute distress. They does not appear septic. On exam the patient has no tenderness to palpation of her thoracic or lumbar spine. There is no edema or ballottement sign. Lower extremities with 5 out of 5 strength in all major muscle groups Upper extremities show 5/5 strength in all major muscle groups. There is FROM that is painless of the b/l UE and LE in all major joints. They are intact to light touch sensation in L2 to S1 nerve distribution. Patient has palpable dorsalis pedis was posterior tibial pulses. Compartments are soft and compressible. Patient shows a negative Homans, Souza's, negative Babinski's negative clonus bilaterally. negative straight leg raise bilaterally. No tensioning signs. Cranial nerves II through XII are grossly intact. Overall alignment is well-maintained in the sagittal coronal planes. DTR 2/4 all upper and lower Dressing is clean and dry at this time Minimal tenderness to palpation around incisions No fluctuance or hematoma - Labs CBC & Chem 7: 10/14/20 05:34 10/13/20 18:27 Labs: Abnormal Lab Results - Last 24 Hours (Table) 10/14/20 10/14/20 10/14/20 Range/Units 05:34 10:56 17:17 POC Glucose (mg/dL) 258 H 160 H (75-99) mg/dL Hemoglobin A1c 6.9 H (4.0-6.0) % 10/14/20 10/15/20 Range/Units 20:41 07:09 POC Glucose (mg/dL) 239 H 161 H (75-99) mg/dL Hemoglobin A1c (4.0-6.0) % Microbiology - Last 24 Hours (Table) 10/13/20 11:15 Urine Culture - Final Urine,Voided Assessment and Plan Assessment: 55 yo female POD2 L4-5 TLIF 1. L4-5 Grade I, unstable spondylolisthesis 2. Neurogenic claudication Plan: -Appreciate medicine management. Symptom Control: -Pain control: Adequate at this time . Would recommend low on the narcotic side of pain medications if needed. Could try a muscle relaxer as well Activity -Aggressive ambulation protocol. OOB with all meals. OOB or in chair 4-5x daily. -PT/OT No braces needed Prophylaxis: -TEDs, SCDs, mechanical ppx. OK for heparin today. Early ambulation is best. -GI ppx. Imaging/labs: Computed tomography scan reviewed and demonstrates good hardware placement with good reduction spondylolisthesis No further imaging needed -Trend labs as appropriate Intervention: Ice to low back Dispo: Home today with home care
[2020-10-15] MEDS: VANCOMYCIN 2,000 MG in SODIUM CHLORIDE 0.9% 500 ML 500 ML IVPB SCH (08:17)
[2020-10-15] MEDS: lisinopriL 10 MG TAB PO SCH (08:18)
[2020-10-15] MEDS: GABAPENTIN 300 MG CAP PO SCH (08:18)
[2020-10-15] MEDS: INSULIN ASPART (NovoLOG) 100 UNIT/ML VIAL SQ SCH (08:18)
[2020-10-15] MEDS: SENNOSIDES 8.6 MG TAB PO SCH (08:19)
[2020-10-15] MEDS: METOPROLOL SUCCINATE (ER) 100 MG TAB.ER.24H PO SCH (08:19)
[2020-10-15] MEDS: VENLAFAXINE HCL ER 150 MG CAP PO SCH (08:19)
--- NOTE | 2020-10-15 08:48 | P.DS ---
Providers Date of admission: 10/14/20 16:14 Expected date of discharge: 10/15/20 Attending physician: Jhonny Joaquin DO Consults: 10/13/20 17:35 Consult Physician Routine Consulting Provider: Tanner Stanley Consult Reason/Comments: Medical Management; s/p L4-L5 TLIF Do you want consulting provider notified?: Yes Primary care physician: Molly Retana DO Hospital Course: Date of admission: 10/13/2020 Date of discharge: 10/16/2019 Admission diagnosis: 1. L4-5 Grade II unstable spondylolisthesis 2. B/L LE radiculopathy Discharge diagnosis: Same Attending physician: Dr. Joaquin Surgical procedures: 1. L4-5 posterolateral interbody fusion 2. L4-5 spondylolisthesis reduction Brief history: Patient is a 55-year-old female with a history of mechanical back pain worsening bilateral lower extremity radiculopathy. At this point patient has failed conservative treatment measures and has opted to proceed with a elective L4-5 posterolateral interbody fusion; L4-5 spondylolisthesis reduction. Hospital course: Details of patient's surgery can be found in operative report. Patient tolerated the procedure well and was subsequently transported to orthopedic floor. Patient's orthopeidc and medical care was provided daily. Patient had daily laboratory tests performed for evaluation of overall blood counts. Patient had daily physical therapy to include strengthening range of motion as well as education with walker ambulation. Patient was noted to have a relatively uneventful postoperative course. Patient reported satisfactory pain control with oral pain medications by postoperative day 2. Patient showed satisfactory progress with physical therapy. Patient moved steadily through the program and had no difficulty meeting the goals by postoperative day 2. Given patient's otherwise satisfactory course and having met physical therapy goals, plan is to discharge patient home on postoperative day 2. Discharge condition/disposition: Patient will be discharged home in stable condition. Discharge medications: Instructions are given on resumption of patient's normal daily medications per primary care recommendation, in addition patient will be prescribed Blackfoot 7.5 mg/325 mg; gabapentin 300 mg; senna; Flexeril 10 mg. Spine Discharge and Recovery Instructions Date of Surgery: 10/13/2020 Diagnosis: 1. L4-5 Grade II unstable spondylolisthesis 2. B/L LE radiculopathy Procedure: 1. L4-5 posterolateral interbody fusion 2. L4-5 spondylolisthesis reduction Medications: See medication list All medication refills should be obtained through your primary care doctor or your clinic spine surgeon. Please discuss prescription refills at your follow up appointment. Do not call the hospital for medication refills. Dressing: Leave your dressing in place for a total of 5 days post operatively. Then you may remove your dressing and leave open to air. Keep the area clean and if not able to keep area clean, then cover with sterile gauze and tape. Showering: You may shower 3 days after your procedure allowing soap and water to run over incision. Do not scrub. Do not soak. Blot dry. Follow up: Please confirm a follow up appointment with your surgeon 3 weeks post operatively. Please make an appointment to follow up with your PCP in 1-2 weeks after surgery for evaluation 3 phase, 3-week plan POST OP WEEKS 1-3 1. Lifting/carrying/pushing/pulling limited to less than 5 pounds. 2. Do not sit for longer than 15 minutes at one time. Get up and walk around. Prolonged sitting is NOT advised. If you lay down, see if you can tolerate laying down on you front (belly side) 3. Walk for periods of 15 minutes = 1 mile but no longer; do it multiple times times each day. 4. Ice your low back after activity. POST OP WEEKS 3-6 1. Lifting limited to less than 20 pounds. 2. Do not sit for longer than 30 minutes at a time. Frequently change positions. Use a sit-to stand workstation or take frequent breaks from sitting if you have returned to work. 3. Walk for 30 minutes each day. If possible, do these three or more times a day POST OP WEEKS 6+ At your 6-week appointment we will give you a physical therapy referral to focus on a core stabilization and strengthening program. You should also work on leg & buttock strengthening, hamstring & quadriceps stretching, and continue a low impact aerobic activity program such as swimming, walking, or riding a stationary bicycle. During the initial 6 weeks after your surgery, you are at the highest risk of re-injuring your spine. You should generally avoid BLTs (bending, lifting and twisting combination motions) and follow the above guidelines to reduce the chance of reinjury. You can anticipate post op appointments in our office at approximately 3 weeks and 6 weeks after your surgery. INCISION CARE: If your incision is not draining you do NOT need to cover it with a dressing. Keep your incision clean, dry and intact. In most cases, we apply skin glue, guilherme or sutures to the incision at the time of surgery. This will be like a crust or have the appearance of a scab and will fall off in time on its own. The stitches or guilherme need to be removed at 3 weeks post op appointment. You may begin to shower 3 days after surgery (this allows the glue to blackmon well). However, please avoid scrubbing the incision site or peeling off any of the skin glue. This will ensure optimal healing of your incision. Also, during this time avoid soaking the incision area in water - this includes swimming pools, hot tubs or baths. No ointments, lotions or oils on the incision until your surgeon allows. Leave guilherme, sutures or glue in place. Neurological dysfunction that comes on suddenly can also be a sign of a stroke. Below some common symptoms of a stroke are listed: B - balance difficulty such as sudden onset walking or leaning to one side - NEW E - eye problem such as sudden double vision or trouble seeing on one side - NEW F - Facial weakness or numbness on one side - NEW A - Arm or leg weakness or numbness on one side - NEW S - Slurred speech or difficulty with word finding - NEW T - Time is BRAIN! Call 911 as soon as you recognize these symptoms Diet: Consume a regular diet rich in vegetables and lean protein such as chicken or fish. You should consume in a ratio of approximately 20% fats|40% carbohydrates|40%protein. Vegetables, sweet potatoes, brown rice or quinoa are examples of good carbohydrates. Chips, white bread, cookies and sweets/sugar are examples of bad carbohydrates. Limit your bad carbs, go wild with good carbs. "Life's Simple 7" Guidelines as per [place] [employer] These will help you reclaim your life after surgery and foundry helper in your recovery, keeping in mind your restrictions. (1) Get Active. Physical activity can help people lose weight, control high blood pressure and cholesterol, feel emotionally better, and sleep better. (2) Control Cholesterol. Avoid a diet high in saturated fat, trans fat, & cholesterol. Limit whole milk & cream, ice cream, butter, egg yolks, processed meats (like sausage and hot dogs), and fatty meats. Choose healthy foods that are low in saturated fat, trans fat and cholesterol which include: Fruits and vegetables, fiber rich grain products (like whole grain pasta and brown rice), lean meat such as chicken, fish, nuts, seeds, and legumes. (3) Eat Better. Eat small portions. Shop at the grocery with a list and do not stray from it. Tips for a healthy diet include: Limit sodium intake to less than 1500mg daily, avoid prepackaged, processed, and fast foods, choose a diet rich in fruits, vegetables, and whole grain, high fiber foods, and limit saturated & cholesterol in your diet. (4) Manage Blood Pressure. If you have high blood pressure, you should have a cuff at home so that you can check your blood pressure regularly. Be sure you have a good cuff. An arm one is generally better than a wrist one. Bring the cuff to a doctor's appointment to validate that the measurements that your cuff are taking are accurate. Take your blood pressure twice daily when you are sitting down and relaxing. Record the numbers in a log and bring this log with you to your doctors' appointments. (5) Lose Weight if your BMI is above 25. A healthy BMI is between 19-25. To calculate Your BMI, you may use a Standard BMI Calculator on the NIH BMI website: <www.nhlbi.nih.gov/guidelines/obesity/BMI/bmicalc.htm>. Weigh oneself daily. If you are overweight, set a goal to lose weight. A pound a week loss if needed is a good target. (6) Reduce Blood Sugar. Limit foods and liquids with "added sugars." (Added sugars include sucrose, fructose, glucose, maltose, dextrose, high fructose corn syrup, corn syrup, concentrated fruit juice and honey). (7) Stop Smoking. If you smoke, quitting smoking is one of the best things that you can do for your health. Smoking increases your risk of heart attack, stroke, and peripheral vascular disease, which is a build-up of plaque in your arteries. Please discard all the cigarettes and lighters in your house. Have a plan for what you will do when you have the urge to smoke. Direct and second- hand smoke shortens your life as well as the lives of your family, friends and others around you. For your health and the health of those around you, please consider quitting! Proper Bending Body Mechanics: Maintain a wide stance with one foot slightly in front of the other. Keep your back straight. Bend utilizing the strength in your hips and knees. Do not bend at the waist. Maintain the lifted object at your waist-level close to your body. Avoid lifting weight that causes immediately pain or pain anywhere in the body afterwards. Smoking/Nicotine If there was ever one thing that you could do to increase your overall health, decrease your risk of cardiovascular problems by about 39% the second you make the choice, it is to STOP SMOKING. Your body's most instant gratification is the second you stop smoking. We have all heard the studies, read the articles but it is true, smoking is extremely bad for your overall health, and moreover it is detrimental to your bone health. Nicotine, IN ANY FORM, kills bone cells, prevents your body from healing fractures, and significantly prolongs healing after surgery. In spine surgery specifically, it increases your risk of not healing your bones to create a fusion and increases your risk of having a revision surgery due to this up to 60%. I know it is hard. I know it feels impossible. But there are ways. Take control of your life. We are here to help you through it. And when you are ready, ask us and we can direct you to help if you desire. Use the START Plan to Quit Smoking (please visit the Helpguide.org website listed below for more information): S = Set a quit date. Choose a date within the next 2 weeks, so you have enough time to prepare without losing your motivation to quit. If you mainly smoke at work, quit on the weekend, so you have a few days to adjust to the change. T = Tell family, friends, and co-workers that you plan to quit. Let your friends and family in on your plan to quit smoking and tell them you need their support and encouragement to stop. Look for a quit shu who wants to stop smoking as well. You can help each other get through the rough times. A = Anticipate and plan for the challenges you'll face while quitting. Most people who begin smoking again do so within the first 3 months. You can help yourself make it through by preparing ahead for common challenges, such as nicotine withdrawal and cigarette cravings. R = Remove cigarettes and other tobacco products from your home, car, and work. Throw away all your cigarettes (no emergency pack!), lighters, ashtrays, and matches. Wash your clothes and freshen up anything that smells like smoke. Shampoo your car, clean your drapes and carpet, and steam your furniture. T = Talk to your doctor about getting help to quit. Your doctor can prescribe medication to help with withdrawal and suggest other alternatives. If you can't see a doctor, you can get many products over the counter at your local pharmacy or grocery store, including the nicotine patch, nicotine lozenges, and nicotine gum. Resources for Quitting Smoking: <https://www.[place].gov/documents/[facility]/Quit_Tobacco_Resources_for_patients_313 480_7.pdf> Supplementation: Take recommended dosages of Vitamin D and Calcium to help fortify your bones and help them to heal. See your health maintenance packet for dosages and recommended levels. DVT/VTE prophylaxis: You will be given compression stockings from the hospital. Wear these daily for the first two weeks after surgery. You may take them off at night. You may be prescribed a medication to help thin your blood. Take this as directed. If you are not prescribed this medication, early and frequent ambulation has been shown to be the best prophylaxis to deep vein thrombosis and sequelae related to this event. Assessment: 1. L4-5 Grade II unstable spondylolisthesis 2. B/L LE radiculopathy Procedures: 1. L4-5 posteriolateral interbody fusion 2. L4-5 spondylolisthesis reduction Patient Condition at Discharge: Good Plan - Discharge Summary Discharge Rx Participant: Yes New Discharge Prescriptions: New cefaDROXiL [Duricef] 1 gm PO Q12HR 3 Days #6 tablet Cyclobenzaprine [Flexeril] 10 mg PO TID PRN #40 tab PRN Reason: Spasms HYDROcodone/APAP 7.5-325MG [Blackfoot 7.5] 1 each PO Q6HR PRN #42 tab PRN Reason: Pain Gabapentin 300 mg PO TID #90 cap Sennosides/Docusate Sodium [Senna Plus 8.6-50 mg Softgel] 1 each PO BID PRN #20 capsule PRN Reason: Constipation No Action Metoprolol Succinate [Toprol XL] 100 mg PO DAILY hydroCHLOROthiazide 25 mg PO DAILY Atorvastatin [Lipitor] 20 mg PO HS metFORMIN HCL [Glucophage] 1,000 mg PO BID lisinopriL 30 mg PO DAILY Venlafaxine HCl [Effexor XR] 150 mg PO BID Esomeprazole Magnesium [NexIUM] 20 mg PO DAILY Naproxen Sodium [Aleve] 440 mg PO BID PRN PRN Reason: Pain Acetaminophen [Tylenol 8 Hour] 1,300 mg PO Q8H PRN PRN Reason: Pain Meloxicam [Mobic] 15 mg PO DAILY Discharge Medication List Atorvastatin [Lipitor] 20 mg PO HS 10/22/14 [History] Metoprolol Succinate [Toprol XL] 100 mg PO DAILY 10/22/14 [History] hydroCHLOROthiazide 25 mg PO DAILY 10/22/14 [History] Venlafaxine HCl [Effexor XR] 150 mg PO BID 05/27/18 [History] lisinopriL 30 mg PO DAILY 05/27/18 [History] metFORMIN HCL [Glucophage] 1,000 mg PO BID 05/27/18 [History] Acetaminophen [Tylenol 8 Hour] 1,300 mg PO Q8H PRN 05/14/20 [History] Esomeprazole Magnesium [NexIUM] 20 mg PO DAILY 05/14/20 [History] Meloxicam [Mobic] 15 mg PO DAILY 05/14/20 [History] Naproxen Sodium [Aleve] 440 mg PO BID PRN 05/14/20 [History] Cyclobenzaprine [Flexeril] 10 mg PO TID PRN #40 tab 10/15/20 [Rx] Gabapentin 300 mg PO TID #90 cap 10/15/20 [Rx] HYDROcodone/APAP 7.5-325MG [Blackfoot 7.5] 1 each PO Q6HR PRN #42 tab 10/15/20 [Rx] Sennosides/Docusate Sodium [Senna Plus 8.6-50 mg Softgel] 1 each PO BID PRN #20 capsule 10/15/20 [Rx] cefaDROXiL [Duricef] 1 gm PO Q12HR 3 Days #6 tablet 10/15/20 [Rx] Follow up Appointment(s)/Referral(s): Jhonny Joaquin DO [Doctor of Osteopathic Medicine] - 2 Weeks Activity/Diet/Wound Care/Special Instructions: Spine Discharge and Recovery Instructions Date of Surgery: 10/13/2020 Diagnosis: L4 5 spondylolisthesis Procedure: 45 MIS T lift Medications: See list All medication refills should be obtained through your primary care doctor or your clinic spine surgeon. Please discuss prescription refills at your follow up appointment. Do not call the hospital for medication refills. Dressing: Leave your dressing in place for a total of 3 days post operatively. Then you may remove your dressing and leave open to air. Keep the area clean and if not able to keep area clean, then cover with sterile gauze and tape. Showering: You may shower 3 days after your procedure allowing soap and water to run over incision. Do not scrub. Do not soak. Blot dry. Follow up: Please confirm a follow up appointment with your surgeon 2 weeks post operatively. Please make an appointment to follow up with your PCP in 1-2 weeks after surgery for evaluation 3 phase, 3-week plan POST OP WEEKS 1-3 1. Lifting/carrying/pushing/pulling limited to less than 5 pounds. 2. Do not sit for longer than 15 minutes at one time. Get up and walk around. Prolonged sitting is NOT advised. If you lay down, see if you can tolerate laying down on you front (belly side) 3. Walk for periods of 15 minutes = 1 mile but no longer; do it multiple times times each day. 4.Ice your low back after activity. POST OP WEEKS 3-6 1. Lifting limited to less than 20 pounds. 2. Do not sit for longer than 30 minutes at a time. Frequently change positions. Use a sit-to stand workstation or take frequent breaks from sitting if you have returned to work. 3. Walk for 30 minutes each day. If possible, do these three or more times a day POST OP WEEKS 6+ At your 6-week appointment we will give you a physical therapy referral to focus on a core stabilization and strengthening program. You should also work on leg & buttock strengthening, hamstring & quadriceps stretching, and continue a low impact aerobic activity program such as swimming, walking, or riding a stationary bicycle. During the initial 6 weeks after your surgery, you are at the highest risk of re-injuring your spine. You should generally avoid BLTs (bending, lifting and twisting combination motions) and follow the above guidelines to reduce the chance of reinjury. You can anticipate post op appointments in our office at approximately 3 weeks and 6 weeks after your surgery. INCISION CARE: If your incision is not draining you do NOT need to cover it with a dressing. Keep your incision clean, dry and intact. In most cases, we apply skin glue, guilherme or sutures to the incision at the time of surgery. This will be like a crust or have the appearance of a scab and will fall off in time on its own. The stitches or guilherme need to be removed at 3 weeks post op appointment. You may begin to shower 3 days after surgery (this allows the glue to blackmon well). However, please avoid scrubbing the incision site or peeling off any of the skin glue. This will ensure optimal healing of your incision. Also, during this time avoid soaking the incision area in water - this includes swimming pools, hot tubs or baths. No ointments, lotions or oils on the incision until your surgeon allows. Leave guilherme, sutures or glue in place. Neurological dysfunction that comes on suddenly can also be a sign of a stroke. Below some common symptoms of a stroke are listed: B - balance difficulty such as sudden onset walking or leaning to one side - NEW E - eye problem such as sudden double vision or trouble seeing on one side - NEW F - Facial weakness or numbness on one side - NEW A - Arm or leg weakness or numbness on one side - NEW S - Slurred speech or difficulty with word finding - NEW T - Time is BRAIN! Call 911 as soon as you recognize these symptoms Diet: Consume a regular diet rich in vegetables and lean protein such as chicken or fish. You should consume in a ratio of approximately 20% fats|40% carbohyd rates|40%protein. Vegetables, sweet potatoes, brown rice or quinoa are examples of good carbohydrates. Chips, white bread, cookies and sweets/sugar are examples of bad carbohydrates. Limit your bad carbs, go wild with good carbs. "Life's Simple 7" Guidelines as per [place] [employer] These will help you reclaim your life after surgery and foundry helper in your recovery, keeping in mind your restrictions. (1) Get Active. Physical activity can help people lose weight, control high blood pressure and cholesterol, feel emotionally better, and sleep better. (2) Control Cholesterol. Avoid a diet high in saturated fat, trans fat, & cholesterol. Limit whole milk & cream, ice cream, butter, egg yolks, processed meats (like sausage and hot dogs), and fatty meats. Choose healthy foods that are low in saturated fat, trans fat and cholesterol which include: Fruits and vegetables, fiber rich grain products (like whole grain pasta and brown rice), lean meat such as chicken, fish, nuts, seeds, and legumes. (3) Eat Better. Eat small portions. Shop at the grocery with a list and do not stray from it. Tips for a healthy diet include: Limit sodium intake to less than 1500mg daily, avoid prepackaged, processed, and fast foods, choose a diet rich in fruits, vegetables, and whole grain, high fiber foods, and limit saturated & cholesterol in your diet. (4) Manage Blood Pressure. If you have high blood pressure, you should have a cuff at home so that you can check your blood pressure regularly. Be sure you have a good cuff. An arm one is generally better than a wrist one. Bring the cuff to a doctor's appointment to validate that the measurements that your cuff are taking are accurate. Take your blood pressure twice daily when you are sitting down and relaxing. Record the numbers in a log and bring this log with you to your doctors' appointments. (5) Lose Weight if your BMI is above 25. A healthy BMI is between 19-25. To calculate Your BMI, you may use a Standard BMI Calculator on the NIH BMI website: <www.nhlbi.nih.gov/guidelines/obesity/BMI/bmicalc.htm>. Weigh oneself daily. If you are overweight, set a goal to lose weight. A pound a week loss if needed is a good target. (6) Reduce Blood Sugar. Limit foods and liquids with "added sugars." (Added sugars include sucrose, fructose, glucose, maltose, dextrose, high fructose corn syrup, corn syrup, concentrated fruit juice and honey). (7) Stop Smoking. If you smoke, quitting smoking is one of the best things that you can do for your health. Smoking increases your risk of heart attack, stroke, and peripheral vascular disease, which is a build-up of plaque in your arteries. Please discard all the cigarettes and lighters in your house. Have a plan for what you will do when you have the urge to smoke. Direct and second- hand smoke shortens your life as well as the lives of your family, friends and others around you. For your health and the health of those around you, please consider quitting! Proper Bending Body Mechanics: Maintain a wide stance with one foot slightly in front of the other. Keep your back straight. Bend utilizing the strength in your hips and knees. Do not bend at the waist. Maintain the lifted object at your waist-level close to your body. Avoid lifting weight that causes immediately pain or pain anywhere in the body afterwards. Smoking/Nicotine If there was ever one thing that you could do to increase your overall health, decrease your risk of cardiovascular problems by about 39% the second you make the choice, it is to STOP SMOKING. Your body's most instant gratification is the second you stop smoking. We have all heard the studies, read the articles but it is true, smoking is extremely bad for your overall health, and moreover it is detrimental to your bone health. Nicotine, IN ANY FORM, kills bone cells, prevents your body from healing fractures, and significantly prolongs healing after surgery. In spine surgery specifically, it increases your risk of not healing your bones to create a fusion and increases your risk of having a revision surgery due to this up to 60%. I know it is hard. I know it feels impossible. But there are ways. Take control of your life. We are here to help you through it. And when you are ready, ask us and we can direct you to help if you desire. Use the START Plan to Quit Smoking (please visit the Helpgu[employer].org website listed below for more information): S = Set a quit date. Choose a date within the next 2 weeks, so you have enough time to prepare without losing your motivation to quit. If you mainly smoke at work, quit on the weekend, so you have a few days to adjust to the change. T = Tell family, friends, and co-workers that you plan to quit. Let your friends and family in on your plan to quit smoking and tell them you need their support and encouragement to stop. Look for a quit shu who wants to stop smoking as well. You can help each other get through the rough times. A = Anticipate and plan for the challenges you'll face while quitting. Most people who begin smoking again do so within the first 3 months. You can help yourself make it through by preparing ahead for common challenges, such as nicotine withdrawal and cigarette cravings. R = Remove cigarettes and other tobacco products from your home, car, and work. Throw away all your cigarettes (no emergency pack!), lighters, ashtrays, and matches. Wash your clothes and freshen up anything that smells like smoke. Shampoo your car, clean your drapes and carpet, and steam your furniture. T = Talk to your doctor about getting help to quit. Your doctor can prescribe medication to help with withdrawal and suggest other alternatives. If you can't see a doctor, you can get many products over the counter at your local pharmacy or grocery store, including the nicotine patch, nicotine lozenges, and nicotine gum. Resources for Quitting Smoking: <https://www.[place].gov/documents/[facility]/Quit_Tobacco_Resources_for_patients_313 480_7.pdf> Supplementation: Take recommended dosages of Vitamin D and Calcium to help fortify your bones and help them to heal. See your health maintenance packet for dosages and recommended levels. DVT/VTE prophylaxis: You will be given compression stockings from the hospital. Wear these daily for the first two weeks after surgery. You may take them off at night. You may be prescribed a medication to help thin your blood. Take this as directed. If you are not prescribed this medication, early and frequent ambulation has been shown to be the best prophylaxis to deep vein thrombosis and sequelae related to this event. Discharge Disposition: HOME WITH HOME HEALTH SERVICES
[2020-10-15 10:29] LABS: African American GFR (CKD) 113.8 (60.0-200.0); Anion Gap 5.6 mmol/L (4.00-12.00); BUN/Creat Ratio 11.43 Ratio (12.00-20.00); Calcium 8.4 mg/dL (8.7-10.3); Carbon Dioxide 30.4 mmol/L (21.6-31.8); Non-African American GFR(CKD) 98.2 (60.0-200.0); Potassium 4.2 mmol/L (3.5-5.5)
[2020-10-15 11:42] VITALS: BP 168/90; PULSE 81; RESP 16; TEMP 98.3
--- NOTE | 2020-10-15 13:23 | P.PN ---
Subjective Progress Note Date: 10/15/20 - Reason for Consult Consult date: 10/14/20 Medical management - Chief Complaint Low back pain - History of Present Illness Patient is a 55-year-old female with known history of hypertension, hyperlipidemia, diabetes type 2 bif-pvlleoy-qpankcnjn, osteoarthritis, history of PE, hypothyroidism was admitted to the hospital with complaints of back pain and bilateral leg pain and weakness. Patient has been having worsening back pain with shooting down pain below the both legs and feeling weak. Patient is also complaining of lower extremity numbness patient had injections and prior coronary therapy without sustained improvement. Patient was admitted to the hospital for L4-L5 fusion surgery due to Bilateral lower extremity radiculopathy Patient underwent L4-L5 posterior lateral interbody fusion and spondylolisthesis reduction. CT lumbar spine showed stable alignment at the L4-L5 levels up to surgical fus ion. Screw positioning is thought satisfactory. 10/15/2020 Patient is seen and evaluated in follow-up with no acute overnight issues. Patient is status post L4-L5 posterior lateral fusion and spondylolisthesis reduction and is being closely monitored. On admission patient had urinalysis which was positive for nitrates and started on ceftriaxone. Culture finalized showing no growth and will continue on oral antibiotics on discharge prophylactically. Patient states she is having some lower groin abdominal cramping but denies any dysuria or retention. She has an appointment with her provider this week and instructed the patient to continue to follow-up with them outpatient. Scripts are provided on discharge for antibiotics. Odium today is 139 with a potassium of 4.2 current creatinine is 0.7. Blood sugars slightly elevated and will resume home medications and instructed the patient to continue to monitor and keep a diary for primary care follow-up. Review of systems: Constitutional: No reports of fatigue, fever, or chills Cardiovascular: No reports of chest pain or palpitations Respiratory: No reports of shortness of breath or cough GI: No reports of nausea, vomiting, or diarrhea : No reports of dysuria or retention, reports some mild lower right groin abdomen discomfort intermittently Neurovascular: No reports of weakness or numbness All medications have been reviewed Objective - Vital Signs Vital signs: Vital Signs Temp 98.3 F 10/15/20 11:41 Pulse 81 10/15/20 11:41 Resp 16 10/15/20 11:41 BP 168/90 10/15/20 11:41 Pulse Ox 96 10/15/20 11:41 Intake & Output 10/14/20 10/15/20 10/15/20 18:59 06:59 18:59 Intake Total 1999 Balance 1999 Intake: Intake, IV Titration 1400 Amount 0.9% NaCl with KCl 20 Meq 900 /l 1,000 ml @ 75 mls/hr IV .[id number] Rx#: [id number] Vancomycin 2,000 mg In 500 Sodium Chloride 0.9% 500 ml 500 ml @ 167 mls/hr IVPB Q12H DAWIT Rx#: [id number] Oral 600 Other: Voiding Method Indwelling Catheter Toilet # Voids 3 - Exam Patient is sitting up in the bed comfortably, no acute distress, awake alert and oriented. Morbidly obese. HEENT: Normocephalic. Neck is supple. Pupils reactive. Nostrils clear. Oral cavity is moist. Neck reveals no JVD, carotid bruits, or thyromegaly. CHEST EXAMINATION: Trachea is central. Symmetrical expansion. Bibasilar diminished sounds. Lung fountain clear to auscultation and percussion. CARDIAC: Normal S1, S2 with no gallops. No murmurs ABDOMEN: Soft. Bowel sounds normal. No organomegaly. No abdominal bruits. Mild lower right abdominal/groin discomfort on deep palpation Extremities: reveal no edema. No clubbing or cyanosis Neurologically awake, alert, oriented x3 with well-coordinated movements. No focal deficits noted Skin: No rash or skin lesions. Psychiatric: Cooperative. Non-suicidal Musculoskeletal: No joint swelling or deformity. Normal range of motion. - Labs CBC & Chem 7: 10/14/20 05:34 10/15/20 05:45 Labs: Abnormal Lab Results - Last 24 Hours (Table) 10/14/20 10/14/20 10/14/20 Range/Units 05:34 17:17 20:41 BUN (9.0-27.0) mg/dL BUN/Creatinine Ratio (12.00-20.00) Ratio Glucose (70-110) mg/dL POC Glucose (mg/dL) 160 H 239 H (75-99) mg/dL Hemoglobin A1c 6.9 H (4.0-6.0) % Calcium (8.7-10.3) mg/dL 10/15/20 10/15/20 Range/Units 05:45 07:09 BUN 8.0 L (9.0-27.0) mg/dL BUN/Creatinine Ratio 11.43 L (12.00-20.00) Ratio Glucose 149 H (70-110) mg/dL POC Glucose (mg/dL) 161 H (75-99) mg/dL Hemoglobin A1c (4.0-6.0) % Calcium 8.4 L (8.7-10.3) mg/dL Microbiology - Last 24 Hours (Table) 10/13/20 11:15 Urine Culture - Final Urine,Voided Assessment and Plan Assessment: Status post L4-L5 interbody fusion surgery. Postoperative day 2 Acute urinary tract infection Mild hypovolemic hyponatremia, improved Hyperglycemia with uncontrolled diabetes type 2 Hypertension Osteoarthritis History of PE Hypothyroidism Previous history of smoking DVT prophylaxis. Morbid obesity with BMI 49.2 Plan: Recommend patient to continue on current pain management and bowel regimen per primary service. Instructed and encouraged the patient to continue with incentive spirometer at least 10 times every hour while awake even at the home. DVT prophylaxis as per primary team. Patient instructed to resume oral diabetic medications and follow-up with primary care provider as she states she has an appointment this week with about increased blood sugars. Urine culture showed no growth although will continue with oral antibiotics for the next 3 days to complete the course a prescription was provided. TSH is 1.4 within normal limits. Patient also instructed to resume home blood pressure medications. Will continue to follow along with BX surgery during hospitalization. Thank you for this consultation. Patient states she is being discharged home today.
[2020-10-15] MEDS ORDERED: VANCOMYCIN TROUGH DUE 1 EACH MISC MISCELLANE ONE (18:00)
== END 2020-10-15 13:00 | disposition home health service (06) ==
LOC: OR 06:06 → EDSTATUS 07:30 → 5NMEDONC 11:38 → OR 10-14 16:14 → 5NMEDONC 10-14 16:14
PROVIDERS: ADMIT Orthopaedic Surgery; ATTEND Orthopaedic Surgery
DX: M43.16 Spondylolisthesis, lumbar region (principal); M54.16 Radiculopathy, lumbar region; J45.909 Unspecified asthma, uncomplicated; K21.9 Gastro-esophageal reflux disease without esophagitis; E78.5 Hyperlipidemia, unspecified; I73.9 Peripheral vascular disease, unspecified; E03.9 Hypothyroidism, unspecified; E66.01 Morbid (severe) obesity due to excess calories; Z68.42 Body mass index [BMI] 45.0-49.9, adult; E86.1 Hypovolemia; E87.1 Hypo-osmolality and hyponatremia; N39.0 Urinary tract infection, site not specified; E11.65 Type 2 diabetes mellitus with hyperglycemia; I10 Essential (primary) hypertension; M19.90 Unspecified osteoarthritis, unspecified site; Z86.711 Personal history of pulmonary embolism; Z86.14 Personal history of Methicillin resistant Staphylococcus aureus infection; Z87.891 Personal history of nicotine dependence; M54.2 Cervicalgia; Z79.899 Other long term (current) drug therapy; Z79.84 Long term (current) use of oral hypoglycemic drugs; Z79.1 Long term (current) use of non-steroidal anti-inflammatories (NSAID); Z91.013 Allergy to seafood; Z90.710 Acquired absence of both cervix and uterus; Z82.49 Family history of ischemic heart disease and other diseases of the circulatory system; Z83.3 Family history of diabetes mellitus; Z80.49 Family history of malignant neoplasm of other genital organs; Z81.8 Family history of other mental and behavioral disorders; Z82.0 Family history of epilepsy and other diseases of the nervous system
CPT/HCPCS: 22612; 20931; 20938; 97162; 97530; 97166; 86900; 86901; 88108; 80048 ×2; 84443; 85025; 86850; 81001; 80170; 87086; 83036; 87635; 72100; 72131; 36415; G0378 ×2; C1713 ×3; C1762 ×2; J2250; J3370 ×3; J1100; J2405; J0690; J2001; J0696 ×2; J3010; J1580 ×2; J1170 ×3; J0330; J2704

== ENCOUNTER → 2022-03-09 | Outpatient (CLI) | payer BC ==
--- NOTE | 2022-03-10 08:33 | MR ---
EXAMINATION TYPE: MR cervical spine wo con DATE OF EXAM: 03/09/2022 INDICATION: Patient age:Female; 56 years old; Reason for study: M54.2 CERVICALGIA;. Neck pain, right hand/ fingers numbness. COMPARISON: MR cervical spine 08/07/2020. TECHNIQUE: Multi planar, multi sequence imaging was performed utilizing: T1-weighted, T2-weighted, an d turbo inversion recovery imaging of the cervical spine. IV Contrast: None FINDINGS: Alignment: The cervical vertebral bodies have preserved heights. Alignment is within normal limits gi justino patient positioning. Bones: Bone signal is within normal limits. Multilevel degenerative disc disease is noted and most p ronounced at the C5-C6 vertebral levels. Cord: The spinal cord is unremarkable with regards to their signal intensity and morphology. Discs: Intervertebral disc signal is maintained. C2-C3: No significant disc pathology. The spinal canal is patent. Bilateral facet and uncovertebral joint arthropathy are present with mild bilateral neural foraminal stenosis. C3-C4: No significant disc pathology. The spinal canal is patent. Bilateral facet and uncovertebral joint arthropathy are present with moderate bilateral neural foraminal stenosis. C4-C5: No significant disc pathology. The spinal canal is patent. Bilateral facet and uncovertebral joint arthropathy are present with moderate bilateral neural foraminal stenosis. C5-C6: A disc osteophyte complex is present with moderate spinal canal stenosis. Bilateral facet and uncovertebral joint arthropathy are present with moderate to severe bilateral neural foraminal steno sis. C6-C7: No significant disc pathology. The spinal canal is patent. Bilateral facet and uncovertebral joint arthropathy are present with mild bilateral neural foraminal stenosis. C7-T1: No significant disc pathology. The spinal canal is patent. No neural foraminal stenosis. Other: Left thyroid nodule. IMPRESSION: 1. Similar moderate spinal canal stenosis at C5-C6. 2. Multilevel neural foraminal narrowing throughout the spine of at least moderate severity. Finding s are felt to be worse at C5-C6. Similar to prior.
== END | disposition home or self-care (01) ==
LOC: RADMRIMAIN 18:43
PROVIDERS: ATTEND Nurse Practitioner Family
DX: M48.02 Spinal stenosis, cervical region (principal); M99.71 Connective tissue and disc stenosis of intervertebral foramina of cervical region
CPT/HCPCS: 72141

== ENCOUNTER 2022-12-28 03:35 | Emergency (ER) | payer BC ==
[2022-12-28] MEDS ORDERED: ONDANSETRON 4 MG/2 ML VIAL IVP STA (03:58)
[2022-12-28] MEDS ORDERED: KETOROLAC 15 MG/ML 1 ML VIAL IVP STA (03:58)
[2022-12-28] MEDS ORDERED: SODIUM CHLORIDE 0.9% 1,000 ML IV STA (03:58)
--- NOTE | 2022-12-28 04:16 | ED ---
General Adult HPI - General Chief complaint: Abdominal Pain Stated complaint: Abdominal pain Time Seen by Provider: 12/28/22 03:48 Source: patient, RN notes reviewed, old records reviewed Mode of arrival: ambulatory Limitations: no limitations - History of Present Illness Initial comments: Patient is a 57 year old female who presents emergency Department complaining of left lower quadrant abdominal pain. Started yesterday afternoon. States it is starting her lower back and radiates around towards her groin and down the anterior aspect of her left leg. No dysuria or hematuria. No nausea or vomiting. No diarrhea or constipation. No vaginal discharge or bleeding. Patient does have a history of UTIs states symptoms are previous to those episo joaquín which is why she presents today to be evaluated. No history of kidney stones. Presents for further evaluation at this time. - Related Data Home Medications Medication Instructions Recorded Confirmed Atorvastatin [Lipitor] 20 mg PO HS 10/22/14 10/13/20 Metoprolol Succinate [Toprol XL] 100 mg PO DAILY 10/22/14 10/13/20 hydroCHLOROthiazide 25 mg PO DAILY 10/22/14 10/13/20 Venlafaxine HCl [Effexor XR] 150 mg PO BID 05/27/18 10/13/20 lisinopriL 30 mg PO DAILY 05/27/18 10/13/20 metFORMIN HCL [Glucophage] 1,000 mg PO BID 05/27/18 10/13/20 Acetaminophen [Tylenol 8 Hour] 1,300 mg PO Q8H PRN 05/14/20 10/13/20 Esomeprazole Magnesium [NexIUM] 20 mg PO DAILY 05/14/20 10/13/20 Meloxicam [Mobic] 15 mg PO DAILY 05/14/20 10/13/20 Naproxen Sodium [Aleve] 440 mg PO BID PRN 05/14/20 10/13/20 Previous Rx's Medication Instructions Recorded Cyclobenzaprine [Flexeril] 10 mg PO TID PRN #40 tab 10/15/20 Gabapentin 300 mg PO TID #90 cap 10/15/20 HYDROcodone/APAP 7.5-325MG [[place] 1 each PO Q6HR PRN #42 tab 10/15/20 7.5] Sennosides/Docusate Sodium [Senna 1 each PO BID PRN #20 capsule 06/17/21 Plus 8.6-50 mg Softgel] cefaDROXiL [Duricef] 1 gm PO Q12HR 3 Days #6 tablet 10/15/20 Ciprofloxacin HCl [Cipro] 500 mg PO Q12HR 7 Days #14 tab 12/28/22 Allergies Allergy/AdvReac Type Severity Reaction Status Date / Time shellfish derived [Shellfish] AdvReac ITCHY Verified 12/28/22 03:47 MOUTH & VOMITING Review of Systems ROS Statement: Those systems with pertinent positive or pertinent negative responses have been documented in the HPI. Review of Systems: CONST: Denies fever EYES: Denies blurry vision ENT: Denies nasal congestion C/V: Denies Chest pain RESP: Denies shortness of breath GI: Endorses left flank pain, abdominal pain : Denies dysuria SKIN: Denies rash. MSK: Denies joint pain. NEURO: Denies headache ROS Other: All systems not noted in ROS Statement are negative. Past Medical History Past Medical History: Asthma, Diabetes Mellitus, GERD/Reflux, Hyperlipidemia, Hypertension, Osteoarthritis (OA), Pulmonary Embolus (PE), Thyroid Disorder Additional Past Medical History / Comment(s): NECK PAIN AND BACK PAIN ,PE X2 History of Any Multi-Drug Resistant Organisms: MRSA Date of last positivie culture/infection: 2010 MDRO Source:: lower extremities Past Surgical History: Hysterectomy, Orthopedic Surgery Additional Past Surgical History / Comment(s): right ankle Past Anesthesia/Blood Transfusion Reactions: No Reported Reaction Past Psychological History: Depression Smoking Status: Former smoker Past Alcohol Use History: Occasional Past Drug Use History: None Reported - Past Family History Father Family Medical History: Coronary Artery Disease (CAD), Diabetes Mellitus Mother Family Medical History: Cancer Additional Family Medical History / Comment(s): CERVICAL CANCER General Exam - General Exam Comments Initial Comments: General: Appears in no acute distress. HEAD: Normal with no signs of head trauma. EYES: PERRLA, EOMI, conjunctiva normal, no discharge. ENT: Hearing grossly intact, normal oropharynx. RESPIRATORY: Clear breath sounds bilaterally. No wheezes, rales, or rhonchi. C/V: Regular rate and rhythm. S1 and S2 auscultated, no edema, peripheral pulses 2+ and intact throughout ABD: Abdomen is soft, nondistended. Mildly tender to palpation in the left CVA region and left flank. No guarding. No rebound tenderness. No peritoneal signs. EXT: Normal range of motion, no obvious deformity SKIN: No rashes or lesions observed on exposed skin. NEURO: Alert and oriented 4. Limitations: no limitations Medical Decision Making - Medical Decision Making Was pt. sent in by a medical professional or institution (JONATHON Koroma, WATER RESOURCE MANAGER, urgent care, hospital, or usp...) When possible be specific @ -No Did you speak to anyone other than the patient for history (EMS, parent, family, police, friend...)? What history was obtained from this source @ -No Did you review nursing and triage notes (agree or disagree)? Why? @ -I reviewed and agree with nursing and triage notes Were old charts reviewed (outside hosp., previous admission, EMS record, old EKG, old radiological studies, urgent care reports/EKG's, usp records)? Report findings @ -No old charts were reviewed Differential Diagnosis (chest pain, altered mental status, abdominal pain women, abdominal pain men, vaginal bleeding, weakness, fever, dyspnea, syncope, headache, dizziness, GI bleed, back pain, seizure, CVA, palpatations, mental health, musculoskeletal)? @ -Differential Abdominal Pain Women: Appendicitis, Cholecystitis, diverticulosis, ischemic bowel, pancreatitis, hepatitis, UTI, gastroenteritis, AAA, incarcerated hernia, bowel obstruction, constipation, inflammatory bowel, hepatitis, peptic ulcer disease, splenic infarction, perforated viscus, vulvitis, ovarian torsion, PID, kidney stone, placenta abruption, this is not meant to be an all-inclusive list EKG interpreted by me (3pts min.). @ -As above X-rays interpreted by me (1pt min.). @ -None done CT interpreted by me (1pt min.). @ -CT revealed no obvious evidence of kidney stone or other acute intra- abdominal process to explain her current symptoms. U/S interpreted by me (1pt. min.). @ -None done What testing was considered but not performed or refused? (CT, X-rays, U/S, labs)? Why? @ -None What meds were considered but not given or refused? Why? @ -None Did you discuss the management of the patient with other professionals (professionals i.e. JONATHON Koroma, WATER RESOURCE MANAGER, lab, RT, psych nurse, social scientist, acid patroller, teacher, chief merchandising officer, case maker)? Give summary @ -No Was smoking cessation discussed for >3mins.? @ -No Was critical care preformed (if so, how long)? @ -No Were there social determinants of health that impacted care today? How? (Homelessness, low income, unemployed, alcoholism, drug addiction, transportation, low edu. Level, literacy, decrease access to med. care, usp, rehab)? @ -No Was there de-escalation of care discussed even if they declined (Discuss DNR or withdrawal of care, Hospice)? DNR status @ -No What co-morbidities impacted this encounter? (DM, HTN, Smoking, COPD, CAD, Cancer, CVA, ARF, Chemo, Hep., AIDS, mental health diagnosis, sleep apnea, morbid obesity)? @ -None Was patient admitted / discharged? Hospital course, mention meds given and route, prescriptions, significant lab abnormalities, going to OR and other pertinent info. @ -Based on patient's presentation and physical exam, patient presents complaining of left flank pain. Appears kidney stone in nature but cannot rule out other etiology. We'll obtain abdominal laboratory studies as well as CT abdomen and pelvis without contrast. She was in agreement this plan. She'll be symptomatically treated with IV fluids, Toradol, Zofran. Patient was in agreement this plan. Vital signs within acceptable limits. Patient's CT revealed no obvious acute abdominal process. Patient is a mild le ukocytosis of 11.6. Appears mildly dehydrated with a lactic acid 2.1. Urinalysis which was delayed returned positive for findings concerning for UTI with blood and white blood cells as well as bacteria. I updated the patient. She is resting comfortably. She expressed understanding. Due to the radiation the pain cannot rule out slowly developing pyelonephritis at this time. Patient will be given a dose of IV Rocephin as well as be started on ciprofloxacin in the department and given a prescription. She was in agreement with this plan. Strict return precautions discussed. I will provide the patient with a prescription for ciprofloxacin. I instructed the patient to follow up with their PCP in the next 1-3 days. I explained that the patient should return to the emergency department if they experience any worsening symptoms. Strict return precautions were discussed with the patient. The patient expressed understanding of these instructions. I answered all questions that the patient had. The patient was discharged home in good condition with their prescriptions and follow up information. Undiagnosed new problem with uncertain prognosis? @ -No Drug Therapy requiring intensive monitoring for toxicity (Heparin, Nitro, Insulin, Cardizem)? @ -No Were any procedures done? @ -No Diagnosis/symptom? @ -UTI, possibly developing pyelonephritis Acute, or Chronic, or Acute on Chronic? @ -Acute Uncomplicated (without systemic symptoms) or Complicated (systemic symptoms)? @ -Complicated Side effects of treatment? @ -none Exacerbation, Progression, or Severe Exacerbation] @ -no Poses a threat to life or bodily function? @ -If untreated, potentially yes - Lab Data Result diagrams: 12/28/22 04:20 12/28/22 04:20 Lab Results 12/28/22 12/28/22 12/28/22 Range/Units 04:20 04:20 04:20 WBC 11.6 H (3.8-10.6) k/uL RBC 4.10 (3.80-5.40) m/uL Hgb 12.5 (11.4-16.0) gm/dL Hct 36.6 (34.0-46.0) % MCV 89.1 (80.0-100.0) fL MCH 30.6 (25.0-35.0) pg MCHC 34.3 (31.0-37.0) g/dL RDW 12.6 (11.5-15.5) % Plt Count 242 (150-450) k/uL MPV 7.7 Neutrophils % 73 % Lymphocytes % 19 % Monocytes % 5 % Eosinophils % 2 % Basophils % 0 % Neutrophils # 8.4 H (1.3-7.7) k/uL Lymphocytes # 2.2 (1.0-4.8) k/uL Monocytes # 0.6 (0-1.0) k/uL Eosinophils # 0.3 (0-0.7) k/uL Basophils # 0.0 (0-0.2) k/uL Sodium 131 L (137-145) mmol/L Potassium 3.8 (3.5-5.1) mmol/L Chloride 97 L (98-107) mmol/L Carbon Dioxide 26 (22-30) mmol/L Anion Gap 8 mmol/L BUN 19 H (7-17) mg/dL Creatinine 0.87 (0.52-1.04) mg/dL Est GFR (CKD-EPI)AfAm 86 (>60 ml/min/1.73 sqM) Est GFR (CKD-EPI)NonAf 75 (>60 ml/min/1.73 sqM) Glucose 124 H (74-99) mg/dL Plasma Lactic Acid Vel 2.1 H* (0.7-2.0) mmol/L Calcium 8.8 (8.4-10.2) mg/dL Total Bilirubin 0.5 (0.2-1.3) mg/dL AST 28 (14-36) U/L ALT 32 (4-34) U/L Alkaline Phosphatase 67 (38-126) U/L Total Protein 6.5 (6.3-8.2) g/dL Albumin 3.8 (3.5-5.0) g/dL Amylase 41 (30-110) U/L Lipase 103 (23-300) U/L Urine Color Urine Appearance (Clear) Urine pH (5.0-8.0) Ur Specific [place] (1.001-1.035) Urine Protein (Negative) Urine Glucose (UA) (Negative) Urine Ketones (Negative) Urine Blood (Negative) Urine Nitrite (Negative) Urine Bilirubin (Negative) Urine Urobilinogen (<2.0) mg/dL Ur Leukocyte Esterase (Negative) Urine RBC (0-5) /hpf Urine WBC (0-5) /hpf Urine WBC Clumps (None) /hpf Ur Squamous Epith Cells (0-4) /hpf Urine Bacteria (None) /hpf Hyaline Casts (0-2) /lpf Urine Mucus (None) /hpf 12/28/22 Range/Units 05:32 WBC (3.8-10.6) k/uL RBC (3.80-5.40) m/uL Hgb (11.4-16.0) gm/dL Hct (34.0-46.0) % MCV (80.0-100.0) fL MCH (25.0-35.0) pg MCHC (31.0-37.0) g/dL RDW (11.5-15.5) % Plt Count (150-450) k/uL MPV Neutrophils % % Lymphocytes % % Monocytes % % Eosinophils % % Basophils % % Neutrophils # (1.3-7.7) k/uL Lymphocytes # (1.0-4.8) k/uL Monocytes # (0-1.0) k/uL Eosinophils # (0-0.7) k/uL Basophils # (0-0.2) k/uL Sodium (137-145) mmol/L Potassium (3.5-5.1) mmol/L Chloride (98-107) mmol/L Carbon Dioxide (22-30) mmol/L Anion Gap mmol/L BUN (7-17) mg/dL Creatinine (0.52-1.04) mg/dL Est GFR (CKD-EPI)AfAm (>60 ml/min/1.73 sqM) Est GFR (CKD-EPI)NonAf (>60 ml/min/1.73 sqM) Glucose (74-99) mg/dL Plasma Lactic Acid Vel (0.7-2.0) mmol/L Calcium (8.4-10.2) mg/dL Total Bilirubin (0.2-1.3) mg/dL AST (14-36) U/L ALT (4-34) U/L Alkaline Phosphatase (38-126) U/L Total Protein (6.3-8.2) g/dL Albumin (3.5-5.0) g/dL Amylase (30-110) U/L Lipase (23-300) U/L Urine Color Light Red Urine Appearance Cloudy H (Clear) Urine pH 5.5 (5.0-8.0) Ur Specific [place] 1.012 (1.001-1.035) Urine Protein 2+ H (Negative) Urine Glucose (UA) Negative (Negative) Urine Ketones Negative (Negative) Urine Blood Large H (Negative) Urine Nitrite Negative (Negative) Urine Bilirubin Negative (Negative) Urine Urobilinogen <2.0 (<2.0) mg/dL Ur Leukocyte Esterase Large H (Negative) Urine RBC >182 H (0-5) /hpf Urine WBC >182 H (0-5) /hpf Urine WBC Clumps Many H (None) /hpf Ur Squamous Epith Cells 19 H (0-4) /hpf Urine Bacteria Moderate H (None) /hpf Hyaline Casts 6 H (0-2) /lpf Urine Mucus Occasional H (None) /hpf Disposition Clinical Impression: UTI (urinary tract infection) Narrative: concern for pyelonephritis Disposition: HOME SELF-CARE Condition: Good Prescriptions: Ciprofloxacin HCl [Cipro] 500 mg PO Q12HR 7 Days #14 tab Is patient prescribed a controlled substance at d/c from ED?: No Referrals: Molly Retana DO [Primary Care Provider] - 1-2 days Time of Disposition: 06:24
[2022-12-28 04:36] LABS: Basophils % (A) 0 %; Eosinophils # (A) 0.3 k/uL (0-0.7); Eosinophils % (A) 2 %; HCT 36.6 % (34.0-46.0); HGB 12.5 gm/dL (11.4-16.0); Lymphocytes # (A) 2.2 k/uL (1.0-4.8); Lymphocytes % (A) 19 %; MCH 30.6 pg (25.0-35.0); MCHC 34.3 g/dL (31.0-37.0); MCV 89.1 fL (80.0-100.0); Mean Platelet Volume 7.7; Monocytes # (A) 0.6 k/uL (0-1.0); Monocytes % (A) 5 %; Neutrophils # (A) 8.4 k/uL (1.3-7.7); Neutrophils % (A) 73 %; Platelet Count 242 k/uL (150-450); RDW 12.6 % (11.5-15.5); WBC 11.6 k/uL (3.8-10.6)
[2022-12-28 04:40] LABS: ALT 32 U/L (4-34); AST 28 U/L (14-36); African American GFR (CKD) 86 (>60 ml/min/1.73 sqM); Albumin 3.8 g/dL (3.5-5.0); Alkaline Phosphatase 67 U/L (38-126); Amylase 41 U/L (30-110); Anion Gap 8 mmol/L; Blood Urea Nitrogen 19 mg/dL (7-17); Calcium 8.8 mg/dL (8.4-10.2); Carbon Dioxide 26 mmol/L (22-30); Chloride 97 mmol/L (98-107); Glucose 124 mg/dL (74-99); Lipase 103 U/L (23-300); Non-African American GFR(CKD) 75 (>60 ml/min/1.73 sqM); Potassium 3.8 mmol/L (3.5-5.1); Sodium 131 mmol/L (137-145); Total Bilirubin 0.5 mg/dL (0.2-1.3); Total Protein 6.5 g/dL (6.3-8.2)
[2022-12-28 05:58] LABS: Appearance,Urine Cloudy (Clear); Bacteria,Urine Moderate /hpf; Bilirubin,Urine Negative (Negative); Blood,Urine Large (Negative); Color,Urine Light Red; Glucose,Urine (UA) Negative (Negative); Hyaline Casts,Urine 6 /lpf (0-2); Ketones,Urine Negative (Negative); Leukocyte Esterase,Urine Large (Negative); Mucus,Urine Occasional /hpf; Nitrite,Urine Negative (Negative); PH, Urine 5.5 (5.0-8.0); Protein,Urine 2+ (Negative); RBC,Urine >182 /hpf (0-5); Specific Gravity,Urine 1.012 (1.001-1.035); Squamous Epithelial Cell,Urine 19 /hpf (0-4); Urobilinogen,Urine <2.0 mg/dL (<2.0); WBC,Urine >182 /hpf (0-5)
--- NOTE | 2022-12-28 06:13 | CT ---
EXAMINATION TYPE: CT abdomen pelvis wo con DATE OF EXAM: 12/28/2022 HISTORY: LEFT LOWER QUADRANT PAIN. Left flank pain. CT DLP: 1483 mGycm. Automated Exposure Control for Dose Reduction was Utilized. TECHNIQUE: CT scan of the abdomen and pelvis is performed without oral or IV contrast. COMPARISON: CTA aorta May 26, 2018 FINDINGS: Within the limitations of a non-contrast study, the following observations are made. LUNG BASES: Stable peripheral 3 mm right lower lung nodule axial image 7 and is presumably benign . LIVER/GB: Hepatomegaly redemonstrated. Liver remains heterogeneously hypodense consistent with fatty infiltrative hepatocellular disease PANCREAS: No significant abnormality is seen. SPLEEN: No significant abnormality is seen. ADRENALS: No significant abnormality is seen. KIDNEYS: No renal stones or hydronephrosis is seen bilaterally. There is a partially exophytic 2.4 cm thin-walled cyst laterally lower pole of the left kidney axial image 82 redemonstrated. BOWEL: Appendix within normal limits from base of cecum. No abnormal small or large bowel dilatation. GENITAL ORGANS: No gross abnormality seen. LYMPH NODES: No greater than 1cm abdominal or pelvic lymph nodes are appreciated. OSSEOUS STRUCTURES: New posterior interpedicular rods and screws at L4-L5 level with metallic disc ma terial. Stable subtle spondylolisthesis at this level. OTHER: No significant additional abnormality is seen. IMPRESSION: No renal stones or hydronephrosis is seen bilaterally. No significant new or acute findin gs identified on noncontrast CT.
[2022-12-28] MEDS ORDERED: CIPROFLOXACIN HCL 500 MG TAB PO STA (06:20)
[2022-12-28] MEDS ORDERED: cefTRIAXone IN SWFI 1,000 MG/10 ML SYRINGE IVP STA (06:21)
[2022-12-28 06:35] VITALS: BP 137/79; PULSE 74; RESP 18
== END 2022-12-28 06:35 | disposition home or self-care (01) ==
LOC: EC 03:35
DX: N39.0 Urinary tract infection, site not specified (principal); E11.9 Type 2 diabetes mellitus without complications; E78.5 Hyperlipidemia, unspecified; I10 Essential (primary) hypertension; J45.909 Unspecified asthma, uncomplicated; M19.90 Unspecified osteoarthritis, unspecified site; K21.9 Gastro-esophageal reflux disease without esophagitis; F32.A Depression, unspecified; Z87.891 Personal history of nicotine dependence; Z91.013 Allergy to seafood; Z79.84 Long term (current) use of oral hypoglycemic drugs; Z79.899 Other long term (current) drug therapy
CPT/HCPCS: 36415; 80053; 82150; 83605; 83690; 85025; 81001; 87086; 87077; 87186; 74176; 99284; 96374; 96375 ×2; 96361; J2405; J0696; J1885

== ENCOUNTER 2023-05-08 04:38 | Emergency (ER) | payer BC ==
[2023-05-08 04:46] VITALS: RESP 18; TEMP 97.9
[2023-05-08] MEDS ORDERED: SODIUM CHLORIDE 0.9% 1,000 ML IV STA (04:58)
--- NOTE | 2023-05-08 04:59 | ED ---
Arrhythmia/Palpitations HPI - General Chief Complaint: Arrhythmia/Palpitations Stated Complaint: Chest Pain, Heart Palpitations Time Seen by Provider: 05/08/23 04:51 Source: patient, RN notes reviewed, old records reviewed Mode of arrival: wheelchair Limitations: no limitations - History of Present Illness Initial Comments: This is a 57-year-old female to the ER today for evaluation of an elevated heart rate palpitations. Patient symptoms began a few months ago been persistent. She has no chest pain. No travel history no sick contacts no other significant complaints. Patient states she feels like something is wrong patient has no current nausea vomiting diarrhea illness his medications and denies recent drugs or alcohol. MD Complaint: rapid heart beat, "heart racing", palpitations, irregular heart beat -: hour(s), days(s), week(s), month(s) Associated Symptoms: shortness of breath, anxiety, feeling of impending doom Treatments Prior to Arrival: other (0) - Related Data Home Medications Medication Instructions Recorded Confirmed Atorvastatin [Lipitor] 20 mg PO HS 10/22/14 10/13/20 Metoprolol Succinate [Toprol XL] 100 mg PO DAILY 10/22/14 10/13/20 hydroCHLOROthiazide 25 mg PO DAILY 10/22/14 10/13/20 Venlafaxine HCl [Effexor XR] 150 mg PO BID 05/27/18 10/13/20 lisinopriL 30 mg PO DAILY 05/27/18 10/13/20 metFORMIN HCL [Glucophage] 1,000 mg PO BID 05/27/18 10/13/20 Acetaminophen [Tylenol 8 Hour] 1,300 mg PO Q8H PRN 05/14/20 10/13/20 Esomeprazole Magnesium [NexIUM] 20 mg PO DAILY 05/14/20 10/13/20 Meloxicam [Mobic] 15 mg PO DAILY 05/14/20 10/13/20 Naproxen Sodium [Aleve] 440 mg PO BID PRN 05/14/20 10/13/20 Previous Rx's Medication Instructions Recorded Cyclobenzaprine [Flexeril] 10 mg PO TID PRN #40 tab 10/15/20 Gabapentin 300 mg PO TID #90 cap 10/15/20 HYDROcodone/APAP 7.5-325MG [[place] 1 each PO Q6HR PRN #42 tab 10/15/20 7.5] Sennosides/Docusate Sodium [Senna 1 each PO BID PRN #20 capsule 10/15/20 Plus 8.6-50 mg Softgel] cefaDROXiL [Duricef] 1 gm PO Q12HR 3 Days #6 tablet 10/15/20 Ciprofloxacin HCl [Cipro] 500 mg PO Q12HR 7 Days #14 tab 12/28/22 Allergies Allergy/AdvReac Type Severity Reaction Status Date / Time shellfish derived [Shellfish] AdvReac ITCHY Verified 05/08/23 04:41 MOUTH & VOMITING Review of Systems ROS Statement: Those systems with pertinent positive or pertinent negative responses have been documented in the HPI. ROS Other: All systems not noted in ROS Statement are negative. Past Medical History Past Medical History: Asthma, Diabetes Mellitus, GERD/Reflux, Hyperlipidemia, Hypertension, Osteoarthritis (OA), Pulmonary Embolus (PE), Thyroid Disorder Additional Past Medical History / Comment(s): NECK PAIN AND BACK PAIN ,PE X2 History of Any Multi-Drug Resistant Organisms: MRSA Date of last positivie culture/infection: 2010 MDRO Source:: lower extremities Past Surgical History: Hysterectomy, Orthopedic Surgery Additional Past Surgical History / Comment(s): right ankle Past Anesthesia/Blood Transfusion Reactions: No Reported Reaction Past Psychological History: Depression Smoking Status: Former smoker Past Alcohol Use History: Occasional Past Drug Use History: None Reported - Past Family History Father Family Medical History: Coronary Artery Disease (CAD), Diabetes Mellitus Mother Family Medical History: Cancer Additional Family Medical History / Comment(s): CERVICAL CANCER General Exam Limitations: no limitations General appearance: alert, in no apparent distress, anxious Head exam: Present: atraumatic, normocephalic, normal inspection Eye exam: Present: normal appearance, PERRL, EOMI. Absent: scleral icterus, co njunctival injection, periorbital swelling ENT exam: Present: normal exam, mucous membranes moist Neck exam: Present: normal inspection. Absent: tenderness, meningismus, lymphadenopathy Respiratory exam: Present: normal lung sounds bilaterally. Absent: respiratory distress, wheezes, rales, rhonchi, stridor Cardiovascular Exam: Present: regular rate, normal rhythm, normal heart sounds. Absent: systolic murmur, diastolic murmur, rubs, gallop, clicks GI/Abdominal exam: Present: soft, normal bowel sounds. Absent: distended, tenderness, guarding, rebound, rigid Extremities exam: Present: normal inspection, full ROM, normal capillary refill. Absent: tenderness, pedal edema, joint swelling, calf tenderness Back exam: Present: normal inspection Neurological exam: Present: alert, oriented X3, CN II-XII intact Psychiatric exam: Present: normal affect, normal mood Skin exam: Present: warm, dry, intact, normal color. Absent: rash Course Vital Signs 05/08/23 05/08/23 05/08/23 04:41 05:00 06:00 Temperature 97.9 F Pulse Rate 89 81 64 Respiratory 18 18 18 Rate Blood Pressure 192/82 131/85 148/75 O2 Sat by Pulse 98 95 98 Oximetry - Reevaluation(s) Reevaluation #1: Medical records reviewed Reevaluation #2: Patient symptoms improved Reevaluation #3: Patient informed results and questions answered Reevaluation #4: Was pt. sent in by a medical professional or institution (, PA, ADVERTISING CAMPAIGN MANAGER, urgent care, hospital, or residential...) When possible be specific @ -no Did you speak to anyone other than the patient for history (EMS, parent, family, police, friend...)? What history was obtained from this source @ -no Did you review nursing and triage notes (agree or disagree)? Why? @ -agree Are old charts reviewed (outside hosp., previous admission, EMS record, old EKG, old radiological studies, urgent care reports/EKG's, residential records)? Report findings @ -yes Differential Diagnosis (chest pain, altered mental status, abdominal pain women, abdominal pain men, vaginal bleeding, weakness, fever, dyspnea, syncope, headache, dizziness, GI bleed, back pain, seizure, CVA, palpatations, mental health, musculoskeletal)? @ -prior EKG interpreted by me (3pts min.). @ -yes X-rays interpreted by me (1pt min.). @ -no CT interpreted by me (1pt min.). @ -no U/S interpreted by me (1pt. min.). @ -no What testing was considered but not performed or refused? (CT, X-rays, U/S, labs)? Why? @ -none What meds were considered but not given or refused? Why? @ -none Did you discuss the management of the patient with other professionals (pr ofessionals i.e. , PA, ADVERTISING CAMPAIGN MANAGER, lab, RT, psych nurse, older adult social work specialist, rivet bucker, teacher, bank secrecy act officer, case specialist)? Give summary @ -no Was smoking cessation discussed for >3mins.? @ -no Were there social determinants of health that impacted care today? How? (Homelessness, low income, unemployed, alcoholism, drug addiction, transportation, low edu. Level, literacy, decrease access to med. care, senior living, rehab)? @ -none Was there de-escalation of care discussed even if they declined (Discuss DNR or withdrawal of care, Hospice)? DNR status @ -no What co-morbidities impacted this encounter? (DM, HTN, Smoking, COPD, CAD, Cancer, CVA, ARF, Chemo, Hep., AIDS, mental health diagnosis, sleep apnea, m orbid obesity)? @ -none Was patient admitted / discharged? Hospital course, mention meds given and route, prescriptions, significant lab abnormalities, going to OR and other pertinent info. @ - 57 female to the emergency department for evaluation of palpitations tachycardia without chest pain or shortness of breath. Patient normal findings and congestion and can be discharged home Discharge Was critical care preformed (if so, how long)? @ -no Undiagnosed new problem with uncertain prognosis? @ -no Drug Therapy requiring intensive monitoring for toxicity (Heparin, Nitro, Insulin, Cardizem)? @ -no Were any procedures done? @ -no Diagnosis/symptom? @ -Palpitations Acute, or Chronic, or Acute on Chronic? @ -Acute Uncomplicated (without systemic symptoms) or Complicated (systemic symptoms)? @ -Complicated Side effects of treatment? @ -no Exacerbation, Progression, or Severe Exacerbation? @ -exacerbation Poses a threat to life or bodily function? How? (Chest pain, [place], MT, pneumonia, PE, COPD, DKA, ARF, appy, cholecystitis, CVA, Diverticulitis, Homicidal, Suicidal, threat to staff... and all critical care pts) @ -yes significant arrhythmia Reevaluation #5: Differential Palpitations Ventricular arrhythmias, atrial arrhythmias, myocardial infarction, anemia, thyrotoxicosis, electrolyte imbalance, hypokalemia, pulmonary embolism, pulmonary disease, drugs, alcohol, anxiety, stress.... This is not meant to be an all-inclusive list. EKG Findings - EKG Comments: EKG Findings:: EKG is sinus 73 NV 171 QRS 75 QTc 404 - EKG Results: EKG: interpreted by [facility] Medical Decision Making - Medical Decision Making 57 female to the emergency department for evaluation of palpitations tachycardia without chest pain or shortness of breath. Patient normal findings and congestion and can be discharged home - Lab Data Result diagrams: 05/08/23 05:26 05/08/23 05:26 Lab Results 05/08/23 05/08/23 05/08/23 Range/Units 05:26 05:26 05:26 WBC 7.9 (3.8-10.6) k/uL RBC 4.67 (3.80-5.40) m/uL Hgb 14.3 (11.4-16.0) gm/dL Hct 41.9 (34.0-46.0) % MCV 89.8 (80.0-100.0) fL MCH 30.6 (25.0-35.0) pg MCHC 34.1 (31.0-37.0) g/dL RDW 12.4 (11.5-15.5) % Plt Count 301 (150-450) k/uL MPV 7.7 Neutrophils % 57 % Lymphocytes % 33 % Monocytes % 5 % Eosinophils % 2 % Basophils % 1 % Neutrophils # 4.5 (1.3-7.7) k/uL Lymphocytes # 2.6 (1.0-4.8) k/uL Monocytes # 0.4 (0-1.0) k/uL Eosinophils # 0.2 (0-0.7) k/uL Basophils # 0.1 (0-0.2) k/uL PT 9.9 L (10.0-12.5) sec INR 0.9 (<1.2) APTT 24.7 (22.0-30.0) sec D-Dimer 0.37 (<0.60) mg/L FEU Sodium 137 (137-145) mmol/L Potassium 3.9 (3.5-5.1) mmol/L Chloride 99 (98-107) mmol/L Carbon Dioxide 24 (22-30) mmol/L Anion Gap 14 mmol/L BUN 11 (7-17) mg/dL Creatinine 0.72 (0.52-1.04) mg/dL Est GFR (CKD-EPI)AfAm >90 (>60 ml/min/1.73 sqM) Est GFR (CKD-EPI)NonAf >90 (>60 ml/min/1.73 sqM) Glucose 132 H (74-99) mg/dL Calcium 9.4 (8.4-10.2) mg/dL Magnesium 1.8 (1.6-2.3) mg/dL Total Bilirubin 0.4 (0.2-1.3) mg/dL AST 28 (14-36) U/L ALT 26 (4-34) U/L Alkaline Phosphatase 81 (38-126) U/L Troponin I (0.000-0.034) ng/mL Total Protein 7.6 (6.3-8.2) g/dL Albumin 4.6 (3.5-5.0) g/dL TSH 0.771 (0.465-4.680) mIU/L 05/08/23 Range/Units 05:26 WBC (3.8-10.6) k/uL RBC (3.80-5.40) m/uL Hgb (11.4-16.0) gm/dL Hct (34.0-46.0) % MCV (80.0-100.0) fL MCH (25.0-35.0) pg MCHC (31.0-37.0) g/dL RDW (11.5-15.5) % Plt Count (150-450) k/uL MPV Neutrophils % % Lymphocytes % % Monocytes % % Eosinophils % % Basophils % % Neutrophils # (1.3-7.7) k/uL Lymphocytes # (1.0-4.8) k/uL Monocytes # (0-1.0) k/uL Eosinophils # (0-0.7) k/uL Basophils # (0-0.2) k/uL PT (10.0-12.5) sec INR (<1.2) APTT (22.0-30.0) sec D-Dimer (<0.60) mg/L FEU Sodium (137-145) mmol/L Potassium (3.5-5.1) mmol/L Chloride (98-107) mmol/L Carbon Dioxide (22-30) mmol/L Anion Gap mmol/L BUN (7-17) mg/dL Creatinine (0.52-1.04) mg/dL Est GFR (CKD-EPI)AfAm (>60 ml/min/1.73 sqM) Est GFR (CKD-EPI)NonAf (>60 ml/min/1.73 sqM) Glucose (74-99) mg/dL Calcium (8.4-10.2) mg/dL Magnesium (1.6-2.3) mg/dL Total Bilirubin (0.2-1.3) mg/dL AST (14-36) U/L ALT (4-34) U/L Alkaline Phosphatase (38-126) U/L Troponin I <0.012 (0.000-0.034) ng/mL Total Protein (6.3-8.2) g/dL Albumin (3.5-5.0) g/dL TSH (0.465-4.680) mIU/L - EKG Data -: EKG Interpreted by Me Disposition Clinical Impression: Tachycardia, Palpitations Disposition: HOME SELF-CARE Condition: Undetermined Instructions (If sedation given, give patient instructions): Heart Palpitations (ED) Is patient prescribed a controlled substance at d/c from ED?: No Referrals: Molly Retana DO [REFERRING] - 1-2 days Jaime Avelar DO [STAFF PHYSICIAN] - 1-2 days Time of Disposition: 06:00
[2023-05-08 05:39] LABS: Basophils # (A) 0.1 k/uL (0-0.2); Basophils % (A) 1 %; Eosinophils # (A) 0.2 k/uL (0-0.7); Eosinophils % (A) 2 %; HCT 41.9 % (34.0-46.0); HGB 14.3 gm/dL (11.4-16.0); Lymphocytes # (A) 2.6 k/uL (1.0-4.8); Lymphocytes % (A) 33 %; MCH 30.6 pg (25.0-35.0); MCHC 34.1 g/dL (31.0-37.0); MCV 89.8 fL (80.0-100.0); Mean Platelet Volume 7.7; Monocytes # (A) 0.4 k/uL (0-1.0); Monocytes % (A) 5 %; Neutrophils # (A) 4.5 k/uL (1.3-7.7); Neutrophils % (A) 57 %; Platelet Count 301 k/uL (150-450); RBC 4.67 m/uL (3.80-5.40); RDW 12.4 % (11.5-15.5); WBC 7.9 k/uL (3.8-10.6)
[2023-05-08 05:51] LABS: ALT 26 U/L (4-34); AST 28 U/L (14-36); African American GFR (CKD) >90 (>60 ml/min/1.73 sqM); Albumin 4.6 g/dL (3.5-5.0); Alkaline Phosphatase 81 U/L (38-126); Anion Gap 14 mmol/L; Blood Urea Nitrogen 11 mg/dL (7-17); Calcium 9.4 mg/dL (8.4-10.2); Carbon Dioxide 24 mmol/L (22-30); Chloride 99 mmol/L (98-107); Glucose 132 mg/dL (74-99); INR 0.9 (<1.2); Magnesium 1.8 mg/dL (1.6-2.3); Non-African American GFR(CKD) >90 (>60 ml/min/1.73 sqM); Partial Thromboplastin Time 24.7 sec (22.0-30.0); Potassium 3.9 mmol/L (3.5-5.1); Prothrombin Time 9.9 sec (10.0-12.5); Sodium 137 mmol/L (137-145); Total Bilirubin 0.4 mg/dL (0.2-1.3); Total Protein 7.6 g/dL (6.3-8.2)
[2023-05-08 06:19] VITALS: BP 148/75; PULSE 64
== END 2023-05-08 07:00 | disposition home or self-care (01) ==
LOC: EC 04:38
DX: R00.2 Palpitations (principal); R00.0 Tachycardia, unspecified; I25.2 Old myocardial infarction; E11.9 Type 2 diabetes mellitus without complications; I10 Essential (primary) hypertension; J45.909 Unspecified asthma, uncomplicated; E78.5 Hyperlipidemia, unspecified; K21.9 Gastro-esophageal reflux disease without esophagitis; Z87.891 Personal history of nicotine dependence; Z79.84 Long term (current) use of oral hypoglycemic drugs; Z79.899 Other long term (current) drug therapy; Z86.59 Personal history of other mental and behavioral disorders; Z91.013 Allergy to seafood
CPT/HCPCS: 36415; 80053; 83735; 84443; 84484; 85025; 85379; 85610; 85730; 93005; 99285